=== PATIENT | female | born 1960 | race Caucasian/White ===

== ENCOUNTER 2018-06-22 22:46 | Inpatient (IN) | payer MEDICAID ==
[~2018-06-22] VITALS: Ht 154.9 cm; Wt 49.2 kg
[~2018-06-22 22:46] MED LIST: CITA10TA4 PO; CLON0.5T11 PO; ETOMIDATE 20 MG/10 ML ONE; LEVE10007 PO; LEVE500T53 PO; MIDAZOLAM 1 MG/ML, 5ML ONE; MIRT30TA6 PO; PHEN100C PO; PHEN100O3 PO; POTA10PI2 PO; PROPOFOL 10 MG/ML, 100ML IV ONE; RISP0.253 PO; SIMV20TA3 PO; SUCCINYLCHOLINE 20 MG/ML, 10ML ONE; VECURONIUM 10 MG ONE
[2018-06-22] MEDS ORDERED: LORazepam 2 MG/ML, 1ML ONE ×4 (22:53→23:05)
--- NOTE | 2018-06-22 23:11 | NUR ---
ASSUMED CARE OF PATIENT. PT BIB [facility] FOR CONTINUES SEIZURES. PT IS HAS A BASELINE OF A&O X1. USUALLY TO SELF. PT HAS A HISTORY OF DEMENTIA. HER FAMILY REPORTED HER MISSING TODAY. THEN FAMILY SAID SHE RETURNED HOME AND STARTED HAVING SEIZURES. PT HAS A HISTORY OF. PT TAKEN TO T3. DR ARTIS IN ROOM FOR INTUBATION. RT IN ROOM FOR INTUBATION.
[2018-06-22] MEDS ORDERED: FOSPHENYTOIN IV ONE (23:30)
[2018-06-22] MEDS ORDERED: LORazepam 2 MG/ML, 1ML IVPush ONE (23:30)
[2018-06-22] MEDS ORDERED: PROPOFOL 100 ML IV PRN (23:30)
[2018-06-22] MEDS ORDERED: MIDAZOLAM HCL 25 MG in SODIUM CHLORIDE 0.9% 245 ML IV PRN (23:30)
[2018-06-22] MEDS ORDERED: PHENYTOIN SODIUM 1,000 MG in SODIUM CHLORIDE 0.9% 250 ML IV ONE (23:45)
[2018-06-22] MEDS ORDERED: FILTER 0.22 MICRON IV ONE (23:45)
[2018-06-23] MEDS ORDERED: ONDANSETRON 2MG/ML, 2ML IVPush PRN
--- NOTE | 2018-06-23 00:05 | NUR ---
PT INTUBATED BY DR ARTIS WITH A 8.0 ET 23 AT THE LIP
[2018-06-23 00:07] LABS: BASOPHILS # (AUTO) 0.03 x10^3/uL (0-0.1); BASOPHILS % (AUTO) 0 % (0-1); EOSINOPHILS # (AUTO) 0.02 x10^3/uL (0-0.4); EOSINOPHILS % (AUTO) 0 % (1-7); LYMPHOCYTES # (AUTO) 1.13 x10^3/uL (1-3.4); LYMPHOCYTES % (AUTO) 9 % (22-44); MD NO; MEAN CORPUSCULAR HEMOGLOBIN 31.2 pg (27.0-34.8); MEAN CORPUSCULAR HGB CONC 34.2 g/dL (32.4-35.8); MEAN CORPUSCULAR VOLUME 91.3 fL (80-100); MEAN PLATELET VOLUME 9.2 fL (7.4-10.4); MONOCYTES # (AUTO) 0.27 x10^3/uL (0.2-0.8); MONOCYTES % (AUTO) 2 % (2-9); NEUTROPHILS # (AUTO) 10.73 x10^3/uL (1.8-6.8); NEUTROPHILS % (AUTO) 88 % (42-75); PLATELET COUNT 212 x10^3/uL (130-400); RED BLOOD COUNT 4.49 x10^6/uL (3.82-5.3); RED CELL DISTRIBUTION WIDTH 13.7 % (9.6-15.2)
--- NOTE | 2018-06-23 00:07 | NUR ---
PT SEEN BY DR RICHARDSON
--- NOTE | 2018-06-23 00:07 | NUR ---
XRAY IN ROOM
[2018-06-23 00:20] LABS: ALBUMIN 3.3 g/dL (3.4-5.0); ANION GAP 8 mmol/L (5-15); CALCIUM 7.9 mg/dL (8.5-10.1); CHLORIDE 108 mmol/L (98-107)
[2018-06-23 00:25] LABS: ALANINE AMINOTRANSFERASE 11 U/L (12-78); ALKALINE PHOSPHATASE 71 U/L (45-117); BILIRUBIN,TOTAL 0.5 mg/dL (0.2-1.0); CREATININE 0.63 mg/dL (0.55-1.02); TOTAL PROTEIN 6.2 g/dL (6.4-8.2); TROPONIN I 0.033 ng/mL (0.000-0.045)
[2018-06-23 00:26] LABS: AMPHETAMINE SCREEN, URINE Negative (Negative); BARBITURATE SCREEN, URINE Negative (Negative); BENZODIAZEPINE SCREEN, URINE Positive (Negative); CANNABINOID SCREEN, URINE Positive (Negative); COCAINE SCREEN, URINE Negative (Negative); METHADONE SCREEN, URINE Negative (Negative); OPIATE SCREEN, URINE Negative (Negative)
--- NOTE | 2018-06-23 00:29 | NUR ---
REPORT CALLED TO BENITO RODRIGUEZ IN ICU.
--- NOTE | 2018-06-23 00:34 | NUR ---
family member Liana [phone]
--- NOTE | 2018-06-23 00:39 | NUR ---
PT IN CT THEN TO ICU.
[2018-06-23] MEDS ORDERED: LEVETIRACETAM 1,000 MG in SODIUM CHLORIDE 0.9% 100 ML IV STA (00:45)
[2018-06-23] MEDS ORDERED: BISACODYL 10 MG SUPP PR PRN (01:00)
[2018-06-23] MEDS ORDERED: GLUCAGON 1 MG IM PRN (01:00)
[2018-06-23] MEDS ORDERED: ALBUTEROL/IPRATROPIUM 2.5MG/0.5MG, 3 ML INLINE SCH (01:00)
[2018-06-23] MEDS ORDERED: SENNOSIDES 8.8 MG/5 ML ORAL SOL NG PRN (01:00)
[2018-06-23] MEDS ORDERED: DEXTROSE 50%, 50ML SYRINGE IVPush PRN (01:00)
[2018-06-23] MEDS ORDERED: SENNA/DOCUSATE TABLET NG PRN (01:00)
[2018-06-23] MEDS ORDERED: PHARMACY MAY ADJ FOR RENAL FX MC SCH (01:00)
[2018-06-23] MEDS ORDERED: LIDOCAINE-MPF 1%, 2ML ENDO PRN (01:00)
[2018-06-23] MEDS ORDERED: DEXTROSE 4 GM TAB.CHEW PO PRN (01:00)
[2018-06-23] MEDS ORDERED: FENTANYL PF 100 MCG/2ML IVPush PRN (01:00)
[2018-06-23] MEDS ORDERED: LACTULOSE 20 GM/30 ML UDC NG PRN (01:00)
[2018-06-23] MEDS ORDERED: LORazepam 2 MG/ML, 1ML IVPush PRN ×2 (01:00)
[2018-06-23] MEDS ORDERED: VANCOMYCIN PMX 1GM/200ML 200 ML IV ONE (01:30)
[2018-06-23] MEDS ORDERED: ACETAMINOPHEN 325 MG TABLET PO PRN (01:30)
[2018-06-23] MEDS ORDERED: VANCOMYCIN IV SCH (01:30)
[2018-06-23] MEDS ORDERED: SODIUM CHLORIDE 0.9% IV SCH (01:30)
[2018-06-23] MEDS ORDERED: CEFTRIAXONE PMX 2GM/50ML 50 ML IV SCH (01:30)
[2018-06-23] MEDS: SODIUM CHLORIDE 0.9% 1,000 ML IV SCH ×3 (01:37→14:20)
[2018-06-23] MEDS: FAMOTIDINE 20 MG/2 ML IVPush SCH ×3 (01:37→20:13)
[2018-06-23] MEDS ORDERED: DEXAMETHASONE 4 MG/ML, 5ML IVPush STA (01:38)
[2018-06-23 01:51] LABS: CREATINE KINASE, TOTAL 153 U/L (26-192); TROPONIN I 0.043 ng/mL (0.000-0.045)
[2018-06-23] MEDS ORDERED: VANCOMYCIN PER PHARMACY MC PRN (02:00)
[2018-06-23] MEDS ORDERED: PHARMACOKINETIC MONITORING MC PRN (02:00)
[2018-06-23] MEDS ORDERED: DEXAMETHASONE 4 MG/ML, 1ML ONE (02:10)
[2018-06-23] MEDS ORDERED: VANCOMYCIN 1,250 MG in SODIUM CHLORIDE 0.9% 250 ML IV ONE (03:00)
[2018-06-23 04:00] VITALS: BP 101/68
[2018-06-23 04:52] LABS: CHLORIDE 107 mmol/L (98-107)
[2018-06-23 04:59] LABS: ALANINE AMINOTRANSFERASE 9 U/L (12-78); ALBUMIN 3.2 g/dL (3.4-5.0); ALKALINE PHOSPHATASE 71 U/L (45-117); ANION GAP 8 mmol/L (5-15); BILIRUBIN,TOTAL 0.4 mg/dL (0.2-1.0); CREATININE 0.78 mg/dL (0.55-1.02); TOTAL PROTEIN 6.5 g/dL (6.4-8.2)
[2018-06-23] MEDS: PROPOFOL 100 ML IV PRN ×2 (05:03→13:42)
[2018-06-23] MEDS ORDERED: LORazepam 2 MG/ML, 1ML IM STA (05:26)
[2018-06-23] MEDS ORDERED: MIDAZOLAM 1 MG/ML, 2ML IVPush ONE (05:30)
[2018-06-23 06:03] LABS: BASOPHILS # (AUTO) 0.01 x10^3/uL (0-0.1); BASOPHILS % (AUTO) 0 % (0-1); EOSINOPHILS # (AUTO) 0.01 x10^3/uL (0-0.4); EOSINOPHILS % (AUTO) 0 % (1-7); LYMPHOCYTES # (AUTO) 1.13 x10^3/uL (1-3.4); LYMPHOCYTES % (AUTO) 12 % (22-44); MD NO; MEAN CORPUSCULAR HEMOGLOBIN 31.2 pg (27.0-34.8); MEAN CORPUSCULAR HGB CONC 34.3 g/dL (32.4-35.8); MEAN CORPUSCULAR VOLUME 91.2 fL (80-100); MEAN PLATELET VOLUME 9.2 fL (7.4-10.4); MONOCYTES # (AUTO) 0.28 x10^3/uL (0.2-0.8); MONOCYTES % (AUTO) 3 % (2-9); NEUTROPHILS % (AUTO) 85 % (42-75); PLATELET COUNT 192 x10^3/uL (130-400); RED BLOOD COUNT 4.83 x10^6/uL (3.82-5.3); RED CELL DISTRIBUTION WIDTH 13.9 % (9.6-15.2)
--- NOTE | 2018-06-23 06:10 | NUR ---
LATE ENTRY: 2 MG OF ATIVAN GIVEN IM. VERBAL ORDER FROM DR ARTIS IN THE TRAUMA ROOM. MEDICATION GIVEN AT 06/22/18 AT 2355. LEFT DELTOID.
[2018-06-23] MEDS: INSULIN REGULAR 100 UNITS/ML, 3ML VIAL SQ-INSULIN SCH ×2 (07:00→11:00)
[2018-06-23] MEDS ORDERED: PHENYTOIN SODIUM 50 MG/ML, 2ML IVPush SCH (08:00)
[2018-06-23 08:38] LABS: CREATINE KINASE, TOTAL 266 U/L (26-192); TROPONIN I 0.067 ng/mL (0.000-0.045)
[2018-06-23] MEDS: SODIUM CHLORIDE FLUSH 10ML SYR IVF SCH ×2 (09:17→20:14)
[2018-06-23] MEDS: ENOXAPARIN 40 MG/0.4 ML SQ SCH (11:05)
[2018-06-23] MEDS: LEVETIRACETAM 500 MG in SODIUM CHLORIDE 0.9% 100 ML IV SCH (12:48)
[2018-06-23] MEDS ORDERED: SODIUM CHLORIDE 0.9% 1,000ML IVBOLUS ONE (14:00)
[2018-06-23] MEDS ORDERED: SODIUM CHLORIDE 0.9%, 500ML IVBOLUS ONE ×2 (14:00→15:45)
[2018-06-23] MEDS ORDERED: VANCOMYCIN PMX 1GM/200ML 200 ML IV SCH (15:00)
[2018-06-24] MEDS: LEVETIRACETAM 500 MG in SODIUM CHLORIDE 0.9% 100 ML IV SCH ×2 (01:28→12:45)
[2018-06-24] MEDS: SODIUM CHLORIDE 0.9% 1,000 ML IV SCH ×3 (01:28→18:09)
[2018-06-24 03:10] VITALS: BP 136/97
[2018-06-24] MEDS ORDERED: SODIUM CHLORIDE 0.9% 1,000ML IVBOLUS ONE (04:00)
[2018-06-24 04:44] LABS: BASOPHILS # (AUTO) 0.03 x10^3/uL (0-0.1); BASOPHILS % (AUTO) 0 % (0-1); EOSINOPHILS % (AUTO) 0 % (1-7); LYMPHOCYTES # (AUTO) 2.97 x10^3/uL (1-3.4); LYMPHOCYTES % (AUTO) 25 % (22-44); MD NO; MEAN CORPUSCULAR HEMOGLOBIN 30.6 pg (27.0-34.8); MEAN CORPUSCULAR VOLUME 92.7 fL (80-100); MEAN PLATELET VOLUME 9.8 fL (7.4-10.4); MONOCYTES # (AUTO) 0.97 x10^3/uL (0.2-0.8); MONOCYTES % (AUTO) 8 % (2-9); NEUTROPHILS # (AUTO) 8.04 x10^3/uL (1.8-6.8); NEUTROPHILS % (AUTO) 67 % (42-75); PLATELET COUNT 161 x10^3/uL (130-400); RED BLOOD COUNT 4.14 x10^6/uL (3.82-5.3); RED CELL DISTRIBUTION WIDTH 14.2 % (9.6-15.2)
[2018-06-24 04:50] LABS: ANION GAP 7 mmol/L (5-15); CALCIUM 7.1 mg/dL (8.5-10.1); CHLORIDE 118 mmol/L (98-107)
[2018-06-24 04:51] LABS: CREATINE KINASE, TOTAL 477 U/L (26-192)
[2018-06-24] MEDS: PROPOFOL 100 ML IV PRN (05:54)
[2018-06-24] MEDS: FAMOTIDINE 20 MG/2 ML IVPush SCH ×2 (08:03→20:26)
[2018-06-24] MEDS: SODIUM CHLORIDE FLUSH 10ML SYR IVF SCH ×2 (08:04→20:26)
[2018-06-24] MEDS: ENOXAPARIN 40 MG/0.4 ML SQ SCH (10:00)
[2018-06-24] MEDS: NICOTINE 14MG/24 HR PATCH.TD24 TD SCH (21:44)
[2018-06-24] MEDS ORDERED: LORazepam 2 MG/ML, 1ML IVPush PRN (22:00)
[2018-06-24] MEDS ORDERED: HALOPERIDOL 5 MG/ML IV PRN (22:00)
[2018-06-25] MEDS: LEVETIRACETAM 500 MG in SODIUM CHLORIDE 0.9% 100 ML IV SCH ×3 (01:00→23:51)
[2018-06-25 04:00] VITALS: BP 94/53
[2018-06-25 04:30] LABS: ANION GAP 7 mmol/L (5-15); CALCIUM 7.7 mg/dL (8.5-10.1); CHLORIDE 111 mmol/L (98-107); CREATININE 0.39 mg/dL (0.55-1.02)
[2018-06-25 05:25] LABS: BASOPHILS # (AUTO) 0.04 x10^3/uL (0-0.1); BASOPHILS % (AUTO) 1 % (0-1); EOSINOPHILS # (AUTO) 0.06 x10^3/uL (0-0.4); EOSINOPHILS % (AUTO) 1 % (1-7); LYMPHOCYTES # (AUTO) 1.92 x10^3/uL (1-3.4); LYMPHOCYTES % (AUTO) 26 % (22-44); MD NO; MEAN CORPUSCULAR HEMOGLOBIN 30.1 pg (27.0-34.8); MEAN CORPUSCULAR HGB CONC 32.6 g/dL (32.4-35.8); MEAN CORPUSCULAR VOLUME 92.2 fL (80-100); MEAN PLATELET VOLUME 9.3 fL (7.4-10.4); MONOCYTES # (AUTO) 0.53 x10^3/uL (0.2-0.8); MONOCYTES % (AUTO) 7 % (2-9); NEUTROPHILS # (AUTO) 4.83 x10^3/uL (1.8-6.8); NEUTROPHILS % (AUTO) 66 % (42-75); PLATELET COUNT 157 x10^3/uL (130-400); RED CELL DISTRIBUTION WIDTH 14.2 % (9.6-15.2)
[2018-06-25] MEDS ORDERED: SODIUM CHLORIDE 0.9%, 250ML IVBOLUS ONE ×2 (08:30→16:30)
[2018-06-25] MEDS ORDERED: CEFTRIAXONE PMX 1GM/50ML 50 ML IV SCH (09:00)
[2018-06-25] MEDS: FAMOTIDINE 20 MG/2 ML IVPush SCH (09:25)
[2018-06-25] MEDS: SODIUM CHLORIDE FLUSH 10ML SYR IVF SCH ×2 (09:26→20:32)
[2018-06-25] MEDS: SODIUM CHLORIDE 0.9% 1,000 ML IV SCH ×3 (10:07→23:51)
[2018-06-25] MEDS: ENOXAPARIN 40 MG/0.4 ML SQ SCH (10:09)
--- NOTE | 2018-06-25 11:24 | NUR ---
PERFECT BINDER OPERATOR recommend: -PUREE/ THINS -Straws ok -Assist as needed -Meds as tolerated orange sheet posted Addendum: 06/25/18 at [address] Amended: Links added.
[2018-06-25] MEDS: PIPERACILLIN/TAZO/PMX 3.375GM 50 ML IV SCH ×2 (15:24→20:32)
[2018-06-25] MEDS: HYDROCORTISONE 100 MG INJ. IVPush SCH (19:18)
[2018-06-25] MEDS: NICOTINE 14MG/24 HR PATCH.TD24 TD SCH (20:33)
[2018-06-25] MEDS ORDERED: SODIUM CHLORIDE 0.9% 1,000 ML IV SCH ×3 (21:40→22:00)
[2018-06-26] MEDS: HYDROCORTISONE 100 MG INJ. IVPush SCH ×3 (01:15→20:50)
[2018-06-26] MEDS: PIPERACILLIN/TAZO/PMX 3.375GM 50 ML IV SCH ×4 (02:42→20:50)
[2018-06-26 04:00] VITALS: BP 123/69
[2018-06-26] MEDS: SODIUM CHLORIDE 0.9% 1,000 ML IV SCH ×2 (07:09→20:50)
[2018-06-26 07:52] LABS: BASOPHILS % (AUTO) 0 % (0-1); EOSINOPHILS % (AUTO) 0 % (1-7); LYMPHOCYTES # (AUTO) 0.83 x10^3/uL (1-3.4); LYMPHOCYTES % (AUTO) 13 % (22-44); MD NO; MEAN CORPUSCULAR HEMOGLOBIN 30.7 pg (27.0-34.8); MEAN CORPUSCULAR HGB CONC 33.4 g/dL (32.4-35.8); MEAN CORPUSCULAR VOLUME 91.9 fL (80-100); MEAN PLATELET VOLUME 9.5 fL (7.4-10.4); MONOCYTES # (AUTO) 0.26 x10^3/uL (0.2-0.8); MONOCYTES % (AUTO) 4 % (2-9); NEUTROPHILS % (AUTO) 83 % (42-75); PLATELET COUNT 170 x10^3/uL (130-400); RED BLOOD COUNT 3.66 x10^6/uL (3.82-5.3)
[2018-06-26 08:00] LABS: ALBUMIN 2.6 g/dL (3.4-5.0); ANION GAP 7 mmol/L (5-15); CALCIUM 7.8 mg/dL (8.5-10.1); CHLORIDE 111 mmol/L (98-107)
[2018-06-26 08:04] LABS: ALANINE AMINOTRANSFERASE 13 U/L (12-78); ALKALINE PHOSPHATASE 57 U/L (45-117); BILIRUBIN,TOTAL 0.3 mg/dL (0.2-1.0); CREATININE 0.34 mg/dL (0.55-1.02); TOTAL PROTEIN 5.1 g/dL (6.4-8.2)
[2018-06-26] MEDS: SODIUM CHLORIDE FLUSH 10ML SYR IVF SCH ×2 (08:04→20:50)
[2018-06-26] MEDS ORDERED: POTASSIUM CHLORIDE 20 MEQ TAB.ER.PRT ONE (08:49)
[2018-06-26] MEDS: POTASSIUM CHLORIDE 20 MEQ TAB.ER.PRT PO SCH (08:51)
[2018-06-26] MEDS: ENOXAPARIN 40 MG/0.4 ML SQ SCH (11:06)
[2018-06-26] MEDS: LEVETIRACETAM 500 MG in SODIUM CHLORIDE 0.9% 100 ML IV SCH (12:26)
[2018-06-26 20:15] VITALS: BP 117/78
[2018-06-26] MEDS: NICOTINE 14MG/24 HR PATCH.TD24 TD SCH (21:00)
[2018-06-26] MEDS ORDERED: SODIUM CHLORIDE 0.9% 1,000 ML IV SCH (22:00)
[2018-06-27] MEDS: LEVETIRACETAM 500 MG in SODIUM CHLORIDE 0.9% 100 ML IV SCH (00:46)
[2018-06-27 01:55] VITALS: BP 115/77
[2018-06-27] MEDS: PIPERACILLIN/TAZO/PMX 3.375GM 50 ML IV SCH ×2 (03:15→08:27)
[2018-06-27 05:27] LABS: ANION GAP 6 mmol/L (5-15); CHLORIDE 111 mmol/L (98-107); CREATININE 0.46 mg/dL (0.55-1.02)
[2018-06-27 07:25] VITALS: BP 109/71
[2018-06-27] MEDS: HYDROCORTISONE 100 MG INJ. IVPush SCH (08:27)
[2018-06-27] MEDS: SODIUM CHLORIDE FLUSH 10ML SYR IVF SCH (08:28)
[2018-06-27] MEDS: POTASSIUM CHLORIDE 20 MEQ TAB.ER.PRT PO SCH (08:28)
[2018-06-27] MEDS ORDERED: HEPARIN 5,000 UNITS/ML, 1ML SQ SCH (09:30)
[2018-06-27] MEDS ORDERED: NICO-486 TD (10:58)
[2018-06-27] MEDS ORDERED: ACETAMINOPHEN 325 MG TABLET PO PRN (13:30)
[2018-06-27 14:52] VITALS: BP 99/63
[2018-06-27] MEDS ORDERED: LEVETIRACETAM 500 MG TABLET PO SCH (21:00)
[2018-06-27] MEDS ORDERED: SODIUM CHLORIDE 0.9% 1,000 ML IV SCH (22:00)
== END 2018-06-27 19:00 | disposition home or self-care (01) | DRG 871 ==
LOC: ED 23:38 → SUATTDRO 23:43 → EDIP 23:43 → ED 06-23 → CCU 06-23 00:47 → 4EST 06-26 17:35
PROVIDERS: ADMIT Hospitalist; ATTEND Hospitalist
PROC: 5A1945Z Respiratory Ventilation, 24-96 Consecutive Hours (ICD-10-PCS; principal; 2018-06-22)
PROC: 0BH18EZ Insertion of Endotracheal Airway into Trachea, Via Natural or Artificial Opening Endoscopic (ICD-10-PCS; 2018-06-22)
DX: A41.9 Sepsis, unspecified organism (principal); J15.1 Pneumonia due to Pseudomonas; J96.00 Acute respiratory failure, unspecified whether with hypoxia or hypercapnia; Z99.11 Dependence on respirator [ventilator] status; J44.0 Chronic obstructive pulmonary disease with (acute) lower respiratory infection; Q07.02 Arnold-Chiari syndrome with hydrocephalus; G93.40 Encephalopathy, unspecified; E87.2 Acidosis; E46 Unspecified protein-calorie malnutrition; E27.40 Unspecified adrenocortical insufficiency; E87.1 Hypo-osmolality and hyponatremia; G83.84 Todd's paralysis (postepileptic); G30.9 Alzheimer's disease, unspecified; G40.901 Epilepsy, unspecified, not intractable, with status epilepticus; F32.9 Major depressive disorder, single episode, unspecified; E83.51 Hypocalcemia; E78.5 Hyperlipidemia, unspecified; F02.80 Dementia in other diseases classified elsewhere, unspecified severity, without behavioral disturbance, psychotic disturbance, mood disturbance, and anxiety; Z98.2 Presence of cerebrospinal fluid drainage device; Z79.899 Other long term (current) drug therapy; Z87.891 Personal history of nicotine dependence; Z59.0 Homelessness; Z88.8 Allergy status to other drugs, medicaments and biological substances; Z68.20 Body mass index [BMI] 20.0-20.9, adult
CPT/HCPCS: 36415; 36600; 80177; J3490; 31500; 51702; 70450; 71045; 80048; 80053; 80185; 80307; 82330; 82533; 82550; 82803; 82962; 83605; 83735; 84100; 84484; 85025; 87070; 87077; 87081; 87186; 87205; 93005; 94002; 94003; 94150; 95812; 95819; 96365; 96366; G0378; J0696; J1100; J1165; J1644; J1650; J1953; J2250; J2543; J2704; J3370; J0330; J1630; J1720; J2060; J7030; J7040; J7050

== ENCOUNTER 2018-12-03 08:41 | Emergency (ER) | payer MEDICAID ==
[~2018-12-03] VITALS: Ht 165.1 cm; Wt 55.0 kg
[2018-12-03 14:26] VITALS: BP 134/80
== END 2018-12-03 14:43 | disposition home or self-care (01) ==
LOC: ED 09:52
DX: G40.319 Generalized idiopathic epilepsy and epileptic syndromes, intractable, without status epilepticus (principal); I95.9 Hypotension, unspecified; R51 Headache
CPT/HCPCS: 36415; 70450; 71045; 80048; 82040; 84484; 85025; 93005; 99284

== ENCOUNTER 2019-03-17 07:34 | Emergency (ER) | payer MEDICAID ==
[~2019-03-17] VITALS: Ht 165.1 cm; Wt 45.0 kg
[~2019-03-17 07:34] MED LIST changes: -ETOMIDATE 20 MG/10 ML ONE; -MIDAZOLAM 1 MG/ML, 5ML ONE; -MIRT30TA6 PO; +MIRT30TA97 PO; +NICO-486 TD; -PROPOFOL 10 MG/ML, 100ML IV ONE; -SUCCINYLCHOLINE 20 MG/ML, 10ML ONE; -VECURONIUM 10 MG ONE
[2019-03-17 07:36] VITALS: BP 106/75
--- NOTE | 2019-03-17 07:59 | NUR ---
atul davies daughter called [phone] states call if we need any info
[2019-03-17] MEDS ORDERED: ACETAMINOPHEN 325 MG TABLET ONE (08:05)
--- NOTE | 2019-03-17 08:15 | NUR ---
PT BIB BY AKIL FOR C/O OF AN AURA. 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 DENIES ANY SEIZURE ACTIVITY THIS MORNING, NO OTHER C/O BESIDES A 5/10 HEADACHE. LAB AT BEDSIDE FOR DRAW. PT PROVIDED WITH WATER AND MEDICATED PER MAR. DENIES ANY FURTHER NEEDS OR CONCERNS AT THIS TIME.
[2019-03-17] MEDS ORDERED: ACETAMINOPHEN 325 MG TABLET PO ONE (08:30)
[2019-03-17 08:40] LABS: BASOPHILS # (AUTO) 0.04 x10^3/uL (0-0.1); BASOPHILS % (AUTO) 1 % (0-1); EOSINOPHILS # (AUTO) 0.03 x10^3/uL (0-0.4); EOSINOPHILS % (AUTO) 1 % (1-7); LYMPHOCYTES # (AUTO) 1.98 x10^3/uL (1-3.4); LYMPHOCYTES % (AUTO) 32 % (22-44); MD NO; MEAN CORPUSCULAR HEMOGLOBIN 31.6 pg (27.0-34.8); MEAN CORPUSCULAR HGB CONC 33.5 g/dL (32.4-35.8); MEAN CORPUSCULAR VOLUME 94.3 fL (80-100); MEAN PLATELET VOLUME 8.5 fL (7.4-10.4); MONOCYTES % (AUTO) 5 % (2-9); NEUTROPHILS # (AUTO) 3.94 x10^3/uL (1.8-6.8); NEUTROPHILS % (AUTO) 63 % (42-75); PLATELET COUNT 211 x10^3/uL (130-400); RED BLOOD COUNT 5.15 x10^6/uL (3.82-5.3); RED CELL DISTRIBUTION WIDTH 13.4 % (9.6-15.2)
[2019-03-17 08:51] LABS: ALBUMIN 3.7 g/dL (3.4-5.0); ANION GAP 10 mmol/L (5-15); CALCIUM 8.5 mg/dL (8.5-10.1); CHLORIDE 104 mmol/L (98-107); CREATININE 0.77 mg/dL (0.55-1.02)
[2019-03-17] MEDS ORDERED: POTASSIUM CHLORIDE 20 MEQ TAB.ER.PRT PO ONE (09:00)
[2019-03-17] MEDS ORDERED: POTASSIUM CHLORIDE 20 MEQ TAB.ER.PRT ONE (09:06)
--- NOTE | 2019-03-17 09:10 | NUR ---
AMBULATED TO [facility]. REPORT FROM MINESH
--- NOTE | 2019-03-17 09:25 | NUR ---
CALLED DAUGHTER FOR DC INFO. WILL WRITE PT VOUCHER FOR CAB.
--- NOTE | 2019-03-17 09:36 | NUR ---
Patient/Caregiver given discharge instructions and they have confirmed that they understand the instructions. Patient ambulatory with steady gait.
[2019-03-17] MEDS ORDERED: LEVE500V6 PO (12:30)
== END 2019-03-17 09:37 | disposition home or self-care (01) ==
LOC: ED 08:00
DX: G40.909 Epilepsy, unspecified, not intractable, without status epilepticus (principal); E87.6 Hypokalemia; I95.9 Hypotension, unspecified
CPT/HCPCS: 36415; 80048; 82040; 85025; 99283

== ENCOUNTER 2019-03-17 12:16 | Emergency (ER) | payer MEDICAID ==
[2019-03-17] MEDS ORDERED: LEVE500V6 PO (12:30)
--- NOTE | 2019-03-17 12:30 | NUR ---
PAITENT IN BED. HOOKED UP TO SENIOR TALENT MANAGEMENT CONSULTANT. CHEST IS RISING AND FALLING. EYES CLOSED. CALL LIGHT WITHIN REACH
[2019-03-17] MEDS ORDERED: LEVETIRACETAM 500 MG in SODIUM CHLORIDE 0.9% 100 ML IV ONE (13:30)
--- NOTE | 2019-03-17 13:32 | NUR ---
PAITENT UP TO USE RESTROOM. STANDBY ASSIST. PAITENT IS BACK IN BED. CALL LIGHT WITHIN REACH
--- NOTE | 2019-03-17 13:51 | NUR ---
DEEPIKAT IN BED. RESTING. CALL LIGHT WITHIN REACH
[2019-03-17 14:42] VITALS: BP 106/74
--- NOTE | 2019-03-17 14:43 | NUR ---
PAITENT IN BED. UNDER BLANKETS. AWAKE. ORIENTATED. AWAITING DOCTOR DISPO
--- NOTE | 2019-03-17 14:54 | NUR ---
marilynn daughter [phone] vijay OLIVER call
--- NOTE | 2019-03-17 16:05 | NUR ---
SPOKE TO DAUGHTER CK. DAUGHTER GAVE ME THE ADRESS TO SEND THE PAITENT TOO
== END 2019-03-17 16:00 | disposition home or self-care (01) ==
LOC: ED 15:54
DX: G40.319 Generalized idiopathic epilepsy and epileptic syndromes, intractable, without status epilepticus (principal); F17.200 Nicotine dependence, unspecified, uncomplicated
CPT/HCPCS: 93005; 96365; 99283; J1953

== ENCOUNTER 2019-03-18 10:15 | Emergency (ER) | payer MEDICAID ==
[~2019-03-18] VITALS: Ht 165.1 cm; Wt 50.0 kg
[~2019-03-18 10:15] MED LIST changes: +LEVE500V6 PO
[2019-03-18 10:21] VITALS: BP 111/78
--- NOTE | 2019-03-18 11:06 | NUR ---
GOT REPORT FROM AKIL. SHANNEN WAS FOUND WONDERING OUTSIDE APARTMENT. WAS NOT ABLE TO GET BACK INSIDE HER APARTMENT. COULDNT GET A HOLD OF DAUGHTER. CONFUSED. IS NOW RESTING IN BED WATCHING TV.
--- NOTE | 2019-03-18 11:13 | NUR ---
SHANNEN STATED HER NECK WAS "TENDER". APPLIED CERVICAL COLLAR AND LAID THE BED FLAT. CALL LIGHT WITHIN REACH
--- NOTE | 2019-03-18 12:11 | NUR ---
PRECEPTOR NOTE: MESSAGE LEFT FOR SW CONSULT.
[2019-03-18 12:58] LABS: ALANINE AMINOTRANSFERASE 14 U/L (12-78); ALBUMIN 4.1 g/dL (3.4-5.0); ANION GAP 8 mmol/L (5-15); CALCIUM 9.3 mg/dL (8.5-10.1); CHLORIDE 106 mmol/L (98-107); CREATININE 0.71 mg/dL (0.55-1.02)
[2019-03-18 13:00] LABS: BASOPHILS # (AUTO) 0.04 x10^3/uL (0-0.1); BASOPHILS % (AUTO) 0 % (0-1); EOSINOPHILS # (AUTO) 0.01 x10^3/uL (0-0.4); EOSINOPHILS % (AUTO) 0 % (1-7); LYMPHOCYTES # (AUTO) 2.37 x10^3/uL (1-3.4); LYMPHOCYTES % (AUTO) 28 % (22-44); MD NO; MEAN CORPUSCULAR HEMOGLOBIN 31.2 pg (27.0-34.8); MEAN CORPUSCULAR HGB CONC 33.5 g/dL (32.4-35.8); MEAN CORPUSCULAR VOLUME 93.3 fL (80-100); MEAN PLATELET VOLUME 8.8 fL (7.4-10.4); MONOCYTES # (AUTO) 0.46 x10^3/uL (0.2-0.8); MONOCYTES % (AUTO) 6 % (2-9); NEUTROPHILS # (AUTO) 5.49 x10^3/uL (1.8-6.8); NEUTROPHILS % (AUTO) 66 % (42-75); PLATELET COUNT 251 x10^3/uL (130-400); RED BLOOD COUNT 5.18 x10^6/uL (3.82-5.3); RED CELL DISTRIBUTION WIDTH 13.7 % (9.6-15.2)
[2019-03-18 13:01] LABS: ALKALINE PHOSPHATASE 88 U/L (45-117); BILIRUBIN,TOTAL 0.7 mg/dL (0.2-1.0); TOTAL PROTEIN 7.9 g/dL (6.4-8.2)
[2019-03-18 13:02] LABS: CULTURE INDICATED? NO; MICROSCOPIC NOT IND
--- NOTE | 2019-03-18 13:38 | NUR ---
PAITENT WILL BE DISCHARGED HOME. DAUGHTER WILL ACCEPT CARE. PER MEGHNA THE CHIEF WARDEN
== END 2019-03-18 14:01 | disposition home or self-care (01) ==
LOC: ED 13:38
DX: S01.81XA Laceration without foreign body of other part of head, initial encounter (principal); G40.909 Epilepsy, unspecified, not intractable, without status epilepticus; I95.9 Hypotension, unspecified; W18.30XA Fall on same level, unspecified, initial encounter; Y93.89 Activity, other specified; Y92.89 Other specified places as the place of occurrence of the external cause; Y99.8 Other external cause status
CPT/HCPCS: 36415; 70450; 72125; 80053; 80177; 81003; 85025; 99284

== ENCOUNTER 2019-04-22 06:59 | Emergency (ER) | payer MEDICAID ==
[~2019-04-22] VITALS: Ht 165.1 cm; Wt 43.3 kg
[2019-04-22 07:01] VITALS: BP 127/88
--- NOTE | 2019-04-22 08:07 | NUR ---
PT TO ROOM 2. PT PLACED IN GOWN, BELONGINGS IN LOCKER, GARAGE DOORS DOWN AND SITTER AT DOORWAY. URINE COLLECTED/SENT TO LAB. PT UPDATED ON POC. PT STATES SHE IS FROM [place], LEFT BOYFRIEND AND MOVED IN WITH DAUGHTER RECENTLY. PT STATES "ME AND MY DAUGHTER ARE NOT ON SPEAKING TERMS". PT SAYS SHE LEFT HOUSE ROAD CROSSING GUARD B/C SHE CAN'T STAY WITH DAUGHTER ANYMORE. PT ADAMANT THAT DTR NOT BE NOTIFIED WHERE SHE IS OR OF HER STATUS. PT DENIES SI, HI, AH, VH AND ANY HX OF SUCH. PT WITH HX OF ETOH ABUSE (QUIT 2013), MARIJAUNA USE, EPILEPSY, AND HYDROCEPHALUS .
[2019-04-22 08:22] LABS: CULTURE INDICATED? YES; MICROSCOPIC INDICATED
[2019-04-22 08:30] LABS: AMPHETAMINE SCREEN, URINE Negative (Negative); BARBITURATE SCREEN, URINE Negative (Negative); BENZODIAZEPINE SCREEN, URINE Negative (Negative); CANNABINOID SCREEN, URINE Positive (Negative); COCAINE SCREEN, URINE Negative (Negative); METHADONE SCREEN, URINE Negative (Negative); OPIATE SCREEN, URINE Negative (Negative)
--- NOTE | 2019-04-22 08:33 | NUR ---
PT WANTS BROTHER CALLED BUT CANNOT PROVIDE PHONE NUMBER. ATTEMPT TO FIND BROTHER'S NUMBER UNSUCCESSFUL. CALL PLACED TO NUMBER LISTED FOR SON-WRONG NUMBER. ERP NOTIFIED. PER ERP, CALL TO DTR NEEDS TO BE MADE. ERP AWARE THAT PT DOES NOT WANT HER CALLED BUT STATES PT HAS DEMENTIA AND NEXT OF KIN NEEDS TO BE CALLED.
--- NOTE | 2019-04-22 08:39 | NUR ---
NUMBER LISTED FOR DTR IS SAME. 2ND CALL PLACED, PERSON AT THAT NUMBER STATES NO RELATION TO ANY FAMILY WITH LAST NAME ANA. ERP NOTIFIED. MEAL TRAY PROVIDED TO PT.
[2019-04-22 08:40] LABS: ALANINE AMINOTRANSFERASE 16 U/L (12-78); ALBUMIN 3.5 g/dL (3.4-5.0); ANION GAP 4 mmol/L (5-15); CHLORIDE 108 mmol/L (98-107); CREATININE 0.66 mg/dL (0.55-1.02); SALICYLATE LEVEL 1.9 mg/dL (2.8-20.0)
[2019-04-22 08:42] LABS: ALKALINE PHOSPHATASE 79 U/L (45-117); BILIRUBIN,TOTAL 0.4 mg/dL (0.2-1.0); TOTAL PROTEIN 6.8 g/dL (6.4-8.2)
--- NOTE | 2019-04-22 08:57 | NUR ---
CALL TO SW OFFICE, LEFT VM REQUESTNG PT TO BE SEEN NACHO. CALL IN FROM DTR. PER DTR, RELATIONSHIP WITH PT (MOM) HAS BEEN GOOD. DTR STATES SHE THINKS PT LEFT HOUSE, CLIMBING OUT WINDOW, AT AROUND 0430-DOES NOT KNOW WHY BUT STATES SHE GETS CONFUSED OFTEN. DTR WILL LEAVE WORK AND COME TO ED SOON. ERP NOTIFIED. CK [phone]
[2019-04-22] MEDS ORDERED: PHEN100C PO (09:08)
--- NOTE | 2019-04-22 09:18 | NUR ---
PER ERP, NO LEGAL HOLD AND NO NEED FOR SITTER.
[2019-04-22 09:24] LABS: BASOPHILS # (AUTO) 0.01 x10^3/uL (0-0.1); BASOPHILS % (AUTO) 0 % (0-1); EOSINOPHILS # (AUTO) 0.04 x10^3/uL (0-0.4); EOSINOPHILS % (AUTO) 1 % (1-7); LYMPHOCYTES # (AUTO) 2.04 x10^3/uL (1-3.4); LYMPHOCYTES % (AUTO) 24 % (22-44); MD NO; MEAN CORPUSCULAR HEMOGLOBIN 30.8 pg (27.0-34.8); MEAN CORPUSCULAR HGB CONC 32.9 g/dL (32.4-35.8); MEAN CORPUSCULAR VOLUME 93.7 fL (80-100); MEAN PLATELET VOLUME 8.4 fL (7.4-10.4); MONOCYTES # (AUTO) 0.14 x10^3/uL (0.2-0.8); MONOCYTES % (AUTO) 2 % (2-9); NEUTROPHILS % (AUTO) 74 % (42-75); PLATELET COUNT 247 x10^3/uL (130-400); RED BLOOD COUNT 4.97 x10^6/uL (3.82-5.3); RED CELL DISTRIBUTION WIDTH 13.8 % (9.6-15.2)
--- NOTE | 2019-04-22 10:23 | NUR ---
CALL FROM DTR, LEAVING WORK NOW AND SHOULD ARRIVE TO ED SOON.
--- NOTE | 2019-04-22 10:57 | NUR ---
DTR HERE, ALL QUESTIONS ANSWERED. PT AWARE AND DOES NOT OBJECT. PT DISCHARGED HOME WITH DAUGHTER.
== END 2019-04-22 11:16 | disposition home or self-care (01) ==
LOC: ED 10:50
DX: F03.90 Unspecified dementia, unspecified severity, without behavioral disturbance, psychotic disturbance, mood disturbance, and anxiety (principal); G40.909 Epilepsy, unspecified, not intractable, without status epilepticus
CPT/HCPCS: 36415; 80053; 80307; 81001; 85025; 87086; 99283

== ENCOUNTER 2019-04-28 12:46 | Emergency (ER) | payer MEDICAID ==
[~2019-04-28] VITALS: Ht 165.1 cm; Wt 55.0 kg
[2019-04-28 12:52] VITALS: BP 119/78
--- NOTE | 2019-04-28 12:56 | NUR ---
PT BIB EMS FOR POSSIBLE SEIZURE PT HAD AT HOME. PT WAS WALKING ON STREET AND USED A PHONE TO CALL EMS. PT ALERT. NOT IN ANY DISTRESS. VS STABLE .
--- NOTE | 2019-04-28 13:35 | NUR ---
LOBSTER CATCHER AT BEDSIDE. DAUGHTER WILL PRICING CLERK PT
--- NOTE | 2019-04-28 14:20 | NUR ---
Patient/Caregiver given discharge instructions and they have confirmed that they understand the instructions. Patient ambulatory with steady gait.
== END 2019-04-28 14:22 | disposition home or self-care (01) ==
LOC: ED 14:16
DX: G40.309 Generalized idiopathic epilepsy and epileptic syndromes, not intractable, without status epilepticus (principal); F17.200 Nicotine dependence, unspecified, uncomplicated
CPT/HCPCS: 99283

== ENCOUNTER 2019-05-19 15:04 | Emergency (ER) | payer MEDICAID ==
[~2019-05-19] VITALS: Ht 165.1 cm; Wt 50.0 kg
--- NOTE | 2019-05-19 15:10 | NUR ---
PT BIB [facility] FROM HOME FOR C/O POSSIBLE SEIZURE. PER EMS, NEIGHBOR "HEARD SOMETHING" AT THE HOUSE AND CALLED [employer]. PT HAS HX OF SEIZURES. PT HAS NO RECOLLECTION OF HAVING SEIZURE OR ANY INCIDENT TODAY. STATES SHE LAST REMEMBERS LYING IN BED. STATES SHE SOMETIMES HAS A HEADACHE AFTER A SEIZURE BUT DOESN'T HAVE A HEADACHE NOW. NO ORAL TRAUMA OR OTHER SIGNS OF SEIZURE. ARRIVES TO ED A&OX4. VSS. PT STATES SHE LIVES WITH HER DAUGHTER BUT DOESN'T HAVE HER DAUGHTER'S PHONE NUMBER. POC RV'WD WITH PT. ALL MONITORS IN PLACE.
--- NOTE | 2019-05-19 16:05 | NUR ---
SPRITE PROVIDED TO PT PER ERP.
[2019-05-19 16:44] LABS: BASOPHILS # (AUTO) 0.02 x10^3/uL (0-0.1); BASOPHILS % (AUTO) 0 % (0-1); EOSINOPHILS % (AUTO) 0 % (1-7); LYMPHOCYTES # (AUTO) 1.14 x10^3/uL (1-3.4); LYMPHOCYTES % (AUTO) 12 % (22-44); MD NO; MEAN CORPUSCULAR HEMOGLOBIN 31.1 pg (27.0-34.8); MEAN CORPUSCULAR HGB CONC 33.7 g/dL (32.4-35.8); MEAN CORPUSCULAR VOLUME 92.4 fL (80-100); MEAN PLATELET VOLUME 8.6 fL (7.4-10.4); MONOCYTES # (AUTO) 0.39 x10^3/uL (0.2-0.8); MONOCYTES % (AUTO) 4 % (2-9); NEUTROPHILS # (AUTO) 7.85 x10^3/uL (1.8-6.8); NEUTROPHILS % (AUTO) 84 % (42-75); PLATELET COUNT 253 x10^3/uL (130-400); RED BLOOD COUNT 5.11 x10^6/uL (3.82-5.3); RED CELL DISTRIBUTION WIDTH 13.5 % (9.6-15.2)
--- NOTE | 2019-05-19 16:45 | NUR ---
PT'S DAUGHTER/CAREGIVER BEV CALLED . WANTS TO BE CALLED FOR ANY UPDATES/OR REGARDING DISCHARGE. STATES PT WILL HAVE TO TAKE CAB HOME.
[2019-05-19 16:56] LABS: ALBUMIN 3.7 g/dL (3.4-5.0); ANION GAP 6 mmol/L (5-15); CHLORIDE 106 mmol/L (98-107)
[2019-05-19 17:01] LABS: ALANINE AMINOTRANSFERASE 11 U/L (12-78); ALKALINE PHOSPHATASE 93 U/L (45-117); BILIRUBIN,TOTAL 0.5 mg/dL (0.2-1.0); CREATININE 0.75 mg/dL (0.55-1.02); TOTAL PROTEIN 7.5 g/dL (6.4-8.2)
--- NOTE | 2019-05-19 17:15 | NUR ---
PT AMBULATED TO BR WITH STAND BY ASSIST. INSTRUCTED ON CLEAN CATCH URINE SAMPLE.
[2019-05-19 17:27] LABS: MICROSCOPIC NOT IND
[2019-05-19 17:32] LABS: CULTURE INDICATED? NO
[2019-05-19 18:29] VITALS: BP 107/71
--- NOTE | 2019-05-19 18:40 | NUR ---
CALLED PT'S DAUGHTER BEV AND RV'WD RX AND D/C INSTRUCTIONS WITH HER. PER DAUGHTER, OKAY FOR PT TO TAKE CAB HOME. D/C INSTRUCTIONS & RX RV'WD WITH PT, SHE VERBALIZES UNDERSTANDING. CAB VOUCHER PROVIDED TO PT. PT AMBULATED TO ED LOBBY TO WAIT FOR CAB WITHOUT DIFFICULTY.
== END 2019-05-19 18:48 | disposition home or self-care (01) ==
LOC: ED 18:05
DX: G40.802 Other epilepsy, not intractable, without status epilepticus (principal); L03.032 Cellulitis of left toe
CPT/HCPCS: 36415; 80053; 81003; 83605; 85025; 99283

== ENCOUNTER 2019-06-15 02:15 | Emergency (ER) | payer MEDICAID ==
[~2019-06-15] VITALS: Ht 162.6 cm; Wt 48.0 kg
[~2019-06-15 02:15] MED LIST changes: +CLON-364 PO; -CLON0.5T11 PO; +SIMV20TA19 PO; -SIMV20TA3 PO
[2019-06-15] MEDS ORDERED: PHENYTOIN 100 MG CAPSULE PO ONE (02:30)
--- NOTE | 2019-06-15 02:35 | NUR ---
Pt presents to ed c/o szx2 tonight. One witnessed by [facility]. Described as tonic clonic lasting multiple minutes. Given 5 mg versed im. No incontinence or oral trauma noted. Postictal for remsa and gcs of 12, a+ox0 for [facility]. Iv established MEDICARE COORDINATOR. and fsbg of 136 obtained. Pt still appears postictal in ed, but gcs of 14 and following commands. A+ox2 at this time, but still lethargic and acutely confused. Neuro otherwise appears intact. EKG accomplished and sz precautions applied.
[2019-06-15] MEDS ORDERED: PHENYTOIN 100 MG CAPSULE ONE (02:39)
--- NOTE | 2019-06-15 02:45 | NUR ---
Per erp, dilantin po to be non-admin and keppra admin instead.
[2019-06-15] MEDS ORDERED: LEVETIRACETAM 1,000 MG in SODIUM CHLORIDE 0.9% 100 ML IV ONE (03:00)
--- NOTE | 2019-06-15 03:05 | NUR ---
Pt gcs of 15 and a+ox3 at this time. ERP made aware.
[2019-06-15 03:11] LABS: ANION GAP 13 mmol/L (5-15); CHLORIDE 102 mmol/L (98-107); CREATININE 0.87 mg/dL (0.55-1.02)
[2019-06-15 03:12] VITALS: BP 135/88
[2019-06-15 03:35] LABS: BASOPHILS # (AUTO) 0.02 x10^3/uL (0-0.1); BASOPHILS % (AUTO) 0 % (0-1); EOSINOPHILS # (AUTO) 0.09 x10^3/uL (0-0.4); EOSINOPHILS % (AUTO) 1 % (1-7); LYMPHOCYTES # (AUTO) 1.31 x10^3/uL (1-3.4); LYMPHOCYTES % (AUTO) 14 % (22-44); MD NO; MEAN CORPUSCULAR HEMOGLOBIN 31.3 pg (27.0-34.8); MEAN CORPUSCULAR HGB CONC 33.9 g/dL (32.4-35.8); MEAN CORPUSCULAR VOLUME 92.3 fL (80-100); MEAN PLATELET VOLUME 8.4 fL (7.4-10.4); MONOCYTES % (AUTO) 5 % (2-9); NEUTROPHILS % (AUTO) 80 % (42-75); PLATELET COUNT 247 x10^3/uL (130-400); RED BLOOD COUNT 4.71 x10^6/uL (3.82-5.3); RED CELL DISTRIBUTION WIDTH 13.3 % (9.6-15.2)
--- NOTE | 2019-06-15 03:51 | NUR ---
Pt back to normal mentation a+ox4 and gcs 15. Given jagjit crackers and juice for borderline hypoglycemia, per ERP verbal order.
--- NOTE | 2019-06-15 04:26 | NUR ---
Family called to give pt ride home. Pt family does not have a car. States to give taxi voucher home. Will assess pt stability to take taxi home.
== END 2019-06-15 04:56 | disposition home or self-care (01) ==
LOC: ED 03:16
DX: G40.909 Epilepsy, unspecified, not intractable, without status epilepticus (principal); G30.9 Alzheimer's disease, unspecified; Z72.9 Problem related to lifestyle, unspecified
CPT/HCPCS: 36415; 80048; 80307; 85025; 93005; 96374; 99284; J1953

== ENCOUNTER 2019-06-16 10:10 | Inpatient (IN) | payer MEDICAID ==
[~2019-06-16] VITALS: Ht 167.6 cm; Wt 48.5 kg
--- NOTE | 2019-06-16 10:47 | NUR ---
PT BIB BY AKIL "WAS FOUND OUTSIDE WANDERING AROUND HER APARTMENT BUILDING. MAY HAVE LEFT IN THE MIDDLE OF THE NIGHT". PT WAS HERE YESTERDAY FOR A SIMILAR SITUATION. PT HAS BEEN A0X2 AND COMBATIVE. PT HAS HX IS SEIZURES AND IS A HIGH RISK. SHE TRIED TO GET OUT OF BED AND SHE WAS COMBATIVE WHEN WE PLACED HER BACK INTO BED. SHE IS CURRENTLY RESTING IN BED AND HAS A TECH OUTSIDE HER ROOM WATCHING HER TO MAKE SURE SHE IS SAFE. FAMILY HAS BEEN CALLED AND IS EN ROUTE. SOCIAL WORK HAS ALSO BEEN CALLED. PT IS REFUSING TO HAVE HER TEMP TAKEN.
--- NOTE | 2019-06-16 11:59 | NUR ---
PT IS REFUSING TO WEAR PULSE OX. PT ALSO REFUSED BLOOD DRAW. PTS FAMILY STILL HAS NOT ARRIVED.
--- NOTE | 2019-06-16 12:22 | NUR ---
PT STILL REFUSING LABS. DAUGHTER HAS ARRIVED AND IS SPEAKING WITH AIRCRAFT STRUCTURAL DESIGN ENGINEER
[2019-06-16] MEDS ORDERED: HALOPERIDOL 5 MG/ML ONE (12:43)
[2019-06-16] MEDS ORDERED: PLEASE ENTER WEIGHT MC SCH (13:00)
[2019-06-16] MEDS ORDERED: HALOPERIDOL 5 MG/ML IM ONE (13:00)
[2019-06-16 13:17] LABS: ALANINE AMINOTRANSFERASE 12 U/L (12-78); ALBUMIN 3.9 g/dL (3.4-5.0); ANION GAP 14 mmol/L (5-15); CALCIUM 9.1 mg/dL (8.5-10.1); CHLORIDE 98 mmol/L (98-107); CREATININE 0.76 mg/dL (0.55-1.02); SALICYLATE LEVEL 1.8 mg/dL (2.8-20.0)
[2019-06-16 13:21] LABS: BASOPHILS # (AUTO) 0.01 x10^3/uL (0-0.1); BASOPHILS % (AUTO) 0 % (0-1); EOSINOPHILS # (AUTO) 0.16 x10^3/uL (0-0.4); EOSINOPHILS % (AUTO) 1 % (1-7); LYMPHOCYTES # (AUTO) 1.17 x10^3/uL (1-3.4); LYMPHOCYTES % (AUTO) 9 % (22-44); MD NO; MEAN CORPUSCULAR HEMOGLOBIN 31.4 pg (27.0-34.8); MEAN CORPUSCULAR HGB CONC 34.5 g/dL (32.4-35.8); MEAN CORPUSCULAR VOLUME 91.1 fL (80-100); MEAN PLATELET VOLUME 8.8 fL (7.4-10.4); MONOCYTES # (AUTO) 0.83 x10^3/uL (0.2-0.8); MONOCYTES % (AUTO) 6 % (2-9); NEUTROPHILS # (AUTO) 10.79 x10^3/uL (1.8-6.8); NEUTROPHILS % (AUTO) 83 % (42-75); PLATELET COUNT 277 x10^3/uL (130-400); RED BLOOD COUNT 4.81 x10^6/uL (3.82-5.3); RED CELL DISTRIBUTION WIDTH 13.4 % (9.6-15.2)
--- NOTE | 2019-06-16 13:22 | NUR ---
STILL REFUSING TEMP. DID ALLOW HEART MONITOR TO BE CONNECTED. UA SENT
--- NOTE | 2019-06-16 13:24 | NUR ---
PT HAS BEEN UNCOOPERATTIVE AND AT TIMES COMBATIVE FOR ENTIRE LENGTH OF STAY. PT HAS REFUSED TO GIVE BLOOD AND IN ORDER TO CLEAR HER MEDICALLY, PER DR MESSER, 4 STAFF MEMBERS HELD HER DOWN IN ORDER TO ADM MEDS AND DRAW BLOOD. PLAN WAS DISCUSSED WITH DAUGHTER BEFORE HAND AND SHE AGREED, SAYING "DO WHAT YOU GOTTA DO". DAUGHTER ALSO STATED SHE HAS BEEN "ALTERED FROM HER BASELINE BEHAVIOR STARTING YESTERDAY".
[2019-06-16 13:30] LABS: MICROSCOPIC NOT IND
[2019-06-16 13:32] LABS: CULTURE INDICATED? NO
[2019-06-16 13:37] LABS: ALKALINE PHOSPHATASE 107 U/L (45-117); TOTAL PROTEIN 7.3 g/dL (6.4-8.2)
--- NOTE | 2019-06-16 14:41 | NUR ---
PT IS REFUSING IV INSERTION. SPOKE WITH DR MESSER ABOUT NEED FOR IV AND HE SAID TO HOLD OFF ON GIVING HER OWN FOR FEAR OF "SHE MAY TAKE IT OUT ANYWAYS"
[2019-06-16] MEDS ORDERED: SODIUM CHLORIDE FLUSH 10ML SYR IVF PRN (15:00)
[2019-06-16] MEDS: PLEASE ENTER WEIGHT MC SCH ×2 (15:00→20:19)
[2019-06-16] MEDS: NICOTINE 7 MG/24 HR PATCH.TD24 TD SCH (17:00)
[2019-06-16] MEDS ORDERED: HALOPERIDOL 5 MG/ML IVPush PRN (17:00)
[2019-06-16] MEDS ORDERED: ONDANSETRON 2MG/ML, 2ML IVPush PRN (17:00)
[2019-06-16] MEDS ORDERED: POTASSIUM CHLORIDE 20 MEQ TAB.ER.PRT PO ONE (17:00)
[2019-06-16] MEDS ORDERED: LORazepam 2 MG/ML, 1ML IVPush PRN (17:00)
[2019-06-16] MEDS ORDERED: ACETAMINOPHEN 325 MG TABLET PO PRN (17:00)
[2019-06-16 17:31] LABS: FREE T4 (FREE THYROXINE) 1.37 ng/dL (0.76-1.46)
[2019-06-16] MEDS: ENOXAPARIN 40 MG/0.4 ML SQ SCH (18:00)
[2019-06-16] MEDS ORDERED: LEVETIRACETAM 500 MG TABLET PO SCH (21:00)
[2019-06-16 21:44] VITALS: BP 103/65
[2019-06-17 08:00] VITALS: BP 102/64
[2019-06-17 09:26] LABS: AMPHETAMINE SCREEN, URINE Negative (Negative); BARBITURATE SCREEN, URINE Negative (Negative); BENZODIAZEPINE SCREEN, URINE Positive (Negative); CANNABINOID SCREEN, URINE Positive (Negative); COCAINE SCREEN, URINE Negative (Negative); METHADONE SCREEN, URINE Negative (Negative); OPIATE SCREEN, URINE Negative (Negative)
[2019-06-17 11:49] LABS: ANION GAP 12 mmol/L (5-15); CALCIUM 8.3 mg/dL (8.5-10.1); CHLORIDE 102 mmol/L (98-107); CREATININE 0.88 mg/dL (0.55-1.02)
[2019-06-17 12:37] LABS: BASOPHILS # (AUTO) 0.05 x10^3/uL (0-0.1); BASOPHILS % (AUTO) 1 % (0-1); EOSINOPHILS # (AUTO) 0.01 x10^3/uL (0-0.4); EOSINOPHILS % (AUTO) 0 % (1-7); LYMPHOCYTES # (AUTO) 1.56 x10^3/uL (1-3.4); LYMPHOCYTES % (AUTO) 18 % (22-44); MD SCAN; MEAN CORPUSCULAR HEMOGLOBIN 31.2 pg (27.0-34.8); MEAN CORPUSCULAR HGB CONC 33.9 g/dL (32.4-35.8); MEAN CORPUSCULAR VOLUME 92.1 fL (80-100); MEAN PLATELET VOLUME 10.1 fL (7.4-10.4); MONOCYTES # (AUTO) 0.46 x10^3/uL (0.2-0.8); MONOCYTES % (AUTO) 5 % (2-9); NEUTROPHILS # (AUTO) 6.52 x10^3/uL (1.8-6.8); NEUTROPHILS % (AUTO) 76 % (42-75); PLATELET COUNT 181 x10^3/uL (130-400); RED BLOOD COUNT 4.53 x10^6/uL (3.82-5.3); RED CELL DISTRIBUTION WIDTH 13.8 % (9.6-15.2)
[2019-06-17] MEDS: LEVETIRACETAM 500 MG in SODIUM CHLORIDE 0.9% 100 ML IV SCH (13:02)
[2019-06-17 13:43] VITALS: BP 111/62
[2019-06-17] MEDS ORDERED: POTASSIUM CHLORIDE 20 MEQ TAB.ER.PRT PO ONE (14:00)
[2019-06-17] MEDS ORDERED: POTASSIUM CHLORIDE 40 MEQ in SODIUM CHLORIDE 0.9% 500 ML IV ONE (14:00)
[2019-06-17] MEDS: NICOTINE 7 MG/24 HR PATCH.TD24 TD SCH (17:34)
[2019-06-17] MEDS: ENOXAPARIN 40 MG/0.4 ML SQ SCH (17:35)
[2019-06-17 19:23] VITALS: BP 124/81
[2019-06-18] VITALS (9 sets, daily range): BP systolic 80–126; BP diastolic 39–70
[2019-06-18] MEDS ORDERED: SODIUM CHLORIDE 0.9%, 500ML IVBOLUS ONE (01:30)
[2019-06-18] MEDS ORDERED: SODIUM CHLORIDE 0.9% 1,000ML IVBOLUS ONE ×2 (02:00→05:00)
[2019-06-18] MEDS: LEVETIRACETAM 500 MG in SODIUM CHLORIDE 0.9% 100 ML IV SCH ×2 (04:12→16:41)
[2019-06-18 05:05] LABS: ANION GAP 6 mmol/L (5-15); CALCIUM 7.3 mg/dL (8.5-10.1); CHLORIDE 114 mmol/L (98-107); CREATININE 0.58 mg/dL (0.55-1.02)
[2019-06-18 06:08] LABS: ALANINE AMINOTRANSFERASE 10 U/L (12-78); ALBUMIN 2.4 g/dL (3.4-5.0); ANION GAP 6 mmol/L (5-15); CALCIUM 7.3 mg/dL (8.5-10.1); CHLORIDE 115 mmol/L (98-107)
[2019-06-18 06:16] LABS: ALKALINE PHOSPHATASE 67 U/L (45-117); BASOPHILS # (AUTO) 0.04 x10^3/uL (0-0.1); BASOPHILS % (AUTO) 1 % (0-1); BILIRUBIN,TOTAL 0.3 mg/dL (0.2-1.0); CREATININE 0.61 mg/dL (0.55-1.02); EOSINOPHILS # (AUTO) 0.06 x10^3/uL (0-0.4); EOSINOPHILS % (AUTO) 1 % (1-7); LYMPHOCYTES # (AUTO) 2.09 x10^3/uL (1-3.4); LYMPHOCYTES % (AUTO) 37 % (22-44); MD NO; MEAN CORPUSCULAR HGB CONC 32.9 g/dL (32.4-35.8); MEAN CORPUSCULAR VOLUME 94.1 fL (80-100); MEAN PLATELET VOLUME 8.8 fL (7.4-10.4); MONOCYTES # (AUTO) 0.47 x10^3/uL (0.2-0.8); MONOCYTES % (AUTO) 8 % (2-9); NEUTROPHILS # (AUTO) 3.05 x10^3/uL (1.8-6.8); NEUTROPHILS % (AUTO) 54 % (42-75); PLATELET COUNT 196 x10^3/uL (130-400); RED BLOOD COUNT 3.72 x10^6/uL (3.82-5.3); RED CELL DISTRIBUTION WIDTH 13.9 % (9.6-15.2); TOTAL PROTEIN 4.9 g/dL (6.4-8.2)
[2019-06-18] MEDS: MIDODRINE 5 MG TABLET PO SCH ×3 (09:33→20:27)
[2019-06-18] MEDS ORDERED: OXYC5TAB3 PO (12:10)
[2019-06-18] MEDS: DOCUSATE 100 MG CAPSULE PO PRN (16:12)
[2019-06-18] MEDS: NICOTINE 7 MG/24 HR PATCH.TD24 TD SCH (16:42)
[2019-06-18] MEDS: ENOXAPARIN 40 MG/0.4 ML SQ SCH (16:42)
[2019-06-19] MEDS: LEVETIRACETAM 500 MG in SODIUM CHLORIDE 0.9% 100 ML IV SCH (04:31)
[2019-06-19 04:35] VITALS: BP 109/64
[2019-06-19 06:47] LABS: ANION GAP 3 mmol/L (5-15); CALCIUM 8.6 mg/dL (8.5-10.1); CHLORIDE 111 mmol/L (98-107); CREATININE 0.61 mg/dL (0.55-1.02)
[2019-06-19 07:04] VITALS: BP 129/88
[2019-06-19 07:13] LABS: MD YES; MEAN CORPUSCULAR HEMOGLOBIN 31.1 pg (27.0-34.8); MEAN CORPUSCULAR HGB CONC 33.5 g/dL (32.4-35.8); MEAN CORPUSCULAR VOLUME 92.6 fL (80-100); MEAN PLATELET VOLUME 9.1 fL (7.4-10.4); PLATELET COUNT 191 x10^3/uL (130-400); RED BLOOD COUNT 4.69 x10^6/uL (3.82-5.3); RED CELL DISTRIBUTION WIDTH 13.7 % (9.6-15.2)
[2019-06-19 07:37] LABS: <PLATELET ESTIMATE> ADEQUATE; <PLT MORPHOLOGY> NORMAL PLT MORPH; <RBC MORPHOLOGY> NORMAL; LYMPH#(MANUAL) 2.55 x10^3/uL (1-3.4); LYMPHS% (MANUAL) 50 % (22-44); MONOS% (MANUAL) 4 % (2-9); SEG#(MANUAL) 2.35 x10^3/uL (1.8-6.8); SEGS% (MANUAL) 46 % (42-75)
[2019-06-19] MEDS: MIDODRINE 5 MG TABLET PO SCH ×3 (08:01→20:17)
[2019-06-19 14:42] VITALS: BP 107/66
[2019-06-19] MEDS: NICOTINE 7 MG/24 HR PATCH.TD24 TD SCH (15:39)
[2019-06-19] MEDS: ENOXAPARIN 40 MG/0.4 ML SQ SCH (15:46)
[2019-06-19] MEDS ORDERED: HALOPERIDOL 5 MG/ML IM PRN (17:00)
[2019-06-19] MEDS ORDERED: GADOTERATE 7.5 MMOL/15 ML SYR ONE (17:00)
[2019-06-19 18:33] VITALS: BP 97/61
[2019-06-19 20:06] VITALS: BP 86/50
[2019-06-19] MEDS: DOCUSATE 100 MG CAPSULE PO PRN (20:17)
[2019-06-19] MEDS: LEVETIRACETAM 500 MG TABLET PO SCH (20:17)
[2019-06-19 23:08] VITALS: BP 98/58
[2019-06-20 01:48] VITALS: BP 88/52
[2019-06-20] MEDS ORDERED: SODIUM CHLORIDE 0.9%, 500ML IVBOLUS ONE (03:00)
[2019-06-20 06:05] VITALS: BP 96/68
[2019-06-20 07:04] VITALS: BP 97/63
[2019-06-20] MEDS: LEVETIRACETAM 500 MG TABLET PO SCH ×2 (08:04→21:43)
[2019-06-20] MEDS: MIDODRINE 5 MG TABLET PO SCH ×4 (08:05→21:43)
[2019-06-20 12:58] VITALS: BP 102/64
[2019-06-20] MEDS: NICOTINE 7 MG/24 HR PATCH.TD24 TD SCH (15:51)
[2019-06-20] MEDS: ENOXAPARIN 40 MG/0.4 ML SQ SCH (15:52)
[2019-06-20 21:33] VITALS: BP 89/58
[2019-06-20] MEDS: DOCUSATE 100 MG CAPSULE PO PRN (21:42)
[2019-06-21 01:14] VITALS: BP 93/60
[2019-06-21 01:55] VITALS: BP 96/67
[2019-06-21 07:18] VITALS: BP 114/67
[2019-06-21] MEDS: LEVETIRACETAM 500 MG TABLET PO SCH (08:37)
[2019-06-21] MEDS: MIDODRINE 5 MG TABLET PO SCH ×2 (08:37→16:25)
[2019-06-21 13:45] VITALS: BP 94/60
[2019-06-21] MEDS ORDERED: LEVE500T53 PO (15:55)
[2019-06-21] MEDS: NICOTINE 7 MG/24 HR PATCH.TD24 TD SCH (16:25)
== END 2019-06-21 17:49 | disposition home or self-care (01) | DRG 52 ==
LOC: ED 10:14 → EDIP 14:45 → OBSVTOIN 14:45 → INTOOBSV 14:45 → 3N 15:48
PROVIDERS: ADMIT Internal Medicine; ATTEND Internal Medicine
DX: G92 Toxic encephalopathy (principal); I95.9 Hypotension, unspecified; E87.1 Hypo-osmolality and hyponatremia; G30.9 Alzheimer's disease, unspecified; F02.80 Dementia in other diseases classified elsewhere, unspecified severity, without behavioral disturbance, psychotic disturbance, mood disturbance, and anxiety; D64.9 Anemia, unspecified; D72.829 Elevated white blood cell count, unspecified; E87.6 Hypokalemia; G40.909 Epilepsy, unspecified, not intractable, without status epilepticus; Z91.14 Patient's other noncompliance with medication regimen; Z72.0 Tobacco use; Z88.2 Allergy status to sulfonamides
CPT/HCPCS: 36415; 70450; 70553; 80048; 80053; 80185; 80307; 81003; 82140; 82607; 83605; 83690; 83735; 84100; 84439; 84443; 85025; 96372; G0378; J1953; J3480; A9575; J1630; J2060; J7030; J7040

== ENCOUNTER 2019-07-13 23:45 | Emergency (ER) | payer MEDICAID ==
[~2019-07-13] VITALS: Ht 165.1 cm; Wt 55.0 kg
[~2019-07-13 23:45] MED LIST changes: +OXYC5TAB3 PO
--- NOTE | 2019-07-14 00:09 | NUR ---
THIS IS A 58 YO FEMALE BIB [facility] FROM HOME FOR WITNESSED (BY DAUGHTER) TONIC-CLONIC SEIZURE. PER AKIL, DAUGHTER STATED SEIZURE LASTED 5 MINUTES, BUT UNKNOWN IF DAUGHTER WAS COUNTING POSTICTAL STATE. PATIENT HAS HX OF SEIZURES AND DEMENTIA, PATIENT A&OX3 AT THIS TIME, PATIENT UNAWARE OF EVENTS LEADING TO COMING TO HOSPITAL. PIV PLACED BY AKIL CULINARY SPECIALIST, PATIENT SPEAKING IN FULL SENTENCES. ALL MONITORING IN PLACE, NSR ON DIRECTOR RELIGIOUS EDUCATION. SEIZURE PADS IN PLACE, PATIENT PLACED ON BEDPAN DUE TO NEED TO URINATE. PER AKIL, DAUGHTER ON THE WAY
[2019-07-14 00:57] LABS: BASOPHILS % (AUTO) 1 % (0-1); EOSINOPHILS # (AUTO) 0.06 x10^3/uL (0-0.4); EOSINOPHILS % (AUTO) 1 % (1-7); LYMPHOCYTES # (AUTO) 1.58 x10^3/uL (1-3.4); LYMPHOCYTES % (AUTO) 15 % (22-44); MD NO; MEAN CORPUSCULAR HGB CONC 33.6 g/dL (32.4-35.8); MEAN CORPUSCULAR VOLUME 92.4 fL (80-100); MEAN PLATELET VOLUME 8.5 fL (7.4-10.4); MONOCYTES # (AUTO) 0.47 x10^3/uL (0.2-0.8); MONOCYTES % (AUTO) 5 % (2-9); NEUTROPHILS % (AUTO) 79 % (42-75); PLATELET COUNT 251 x10^3/uL (130-400); RED BLOOD COUNT 4.57 x10^6/uL (3.82-5.3); RED CELL DISTRIBUTION WIDTH 13.6 % (9.6-15.2)
--- NOTE | 2019-07-14 00:57 | NUR ---
PATIENT OFF BEDPAN, LINENS CHANGED, AWAITING LAB TO DRAW BLOOD
[2019-07-14 01:06] LABS: ALBUMIN 3.3 g/dL (3.4-5.0); ANION GAP 6 mmol/L (5-15); CALCIUM 8.7 mg/dL (8.5-10.1); CHLORIDE 99 mmol/L (98-107); CREATININE 0.57 mg/dL (0.55-1.02)
--- NOTE | 2019-07-14 01:12 | NUR ---
[facility] AMBULATORY IN ROOM TO COMMODE
--- NOTE | 2019-07-14 01:50 | NUR ---
Break RN: Pt sleeping with resp even and unlabored. Awaiting daughter to d/c pt home.
--- NOTE | 2019-07-14 02:20 | NUR ---
CALLED DAUGHTER, DAUGHTER WAS SUPPOSED TO FOLLOW EMS, DAUGHTER STATES SHE WILL BE HERE IN THE NEXT HOUR
[2019-07-14 03:57] VITALS: BP 118/69
== END 2019-07-14 03:59 | disposition home or self-care (01) ==
LOC: ED 07-14 03:30
DX: G40.309 Generalized idiopathic epilepsy and epileptic syndromes, not intractable, without status epilepticus (principal); F17.200 Nicotine dependence, unspecified, uncomplicated
CPT/HCPCS: 36415; 80048; 82040; 85025; 93005; 99284

== ENCOUNTER 2019-07-18 09:43 | Emergency (ER) | payer MEDICAID ==
[~2019-07-18] VITALS: Ht 165.1 cm; Wt 55.0 kg
--- NOTE | 2019-07-18 09:52 | NUR ---
58 Y/O FEMALE BIB AMBULANCE WITH C/O SEIZURE. PT WAS AMBULATORY WITH STEADY GAIT TO ROOM WITH EMS. PT CHANGED INTO GOWN AND PLACED ON CONT PULSE OX,NIBP, AIRPLANE PILOT HELPER. PER REPORT PT STATED SHE FELT AN AURA THEN WOKE UP ON COUCH. AFTER SHE WALKED TO THE [place] AND CALLED EMS FOR HELP. PER PT "I DIDN'T TAKE MY MEDS TODAY. I DON'T REMEMBER IF I TOOK IT AFTER."
[2019-07-18] MEDS ORDERED: SODIUM CHLORIDE FLUSH 10ML SYR IVF ONE (10:00)
--- NOTE | 2019-07-18 10:19 | NUR ---
PT TO IMAGING
--- NOTE | 2019-07-18 10:32 | NUR ---
PT BACK FROM IMAGING. LAB BEDSIDE. NADN. NO NEEDS REQUESTED AT THIS TIME.
--- NOTE | 2019-07-18 10:35 | NUR ---
LATE ENTRY FOR 1015 CALLED AND LEFT MESSAGE FOR DAUGHTER TO CALL.
--- NOTE | 2019-07-18 10:38 | NUR ---
SPOKE WITH SON, LAWANDA. SON STATES "SHE LEFT THE HOUSE BEFORE I GOT UP THIS MORNING." SON WAS ASKED TO COME DOWN TO ER. SON STATED "CAN I CALL YOU BACK IN 15 MINS?" WILL WAIT FOR CALL BACK.
[2019-07-18 10:47] LABS: BASOPHILS # (AUTO) 0.06 x10^3/uL (0-0.1); BASOPHILS % (AUTO) 1 % (0-1); EOSINOPHILS # (AUTO) 0.06 x10^3/uL (0-0.4); EOSINOPHILS % (AUTO) 1 % (1-7); LYMPHOCYTES # (AUTO) 1.41 x10^3/uL (1-3.4); LYMPHOCYTES % (AUTO) 21 % (22-44); MD NO; MEAN CORPUSCULAR HEMOGLOBIN 31.1 pg (27.0-34.8); MEAN CORPUSCULAR HGB CONC 33.3 g/dL (32.4-35.8); MEAN CORPUSCULAR VOLUME 93.4 fL (80-100); MEAN PLATELET VOLUME 8.5 fL (7.4-10.4); MONOCYTES # (AUTO) 0.26 x10^3/uL (0.2-0.8); MONOCYTES % (AUTO) 4 % (2-9); NEUTROPHILS # (AUTO) 4.81 x10^3/uL (1.8-6.8); NEUTROPHILS % (AUTO) 73 % (42-75); PLATELET COUNT 187 x10^3/uL (130-400); RED BLOOD COUNT 4.67 x10^6/uL (3.82-5.3); RED CELL DISTRIBUTION WIDTH 13.9 % (9.6-15.2)
[2019-07-18 10:51] VITALS: BP 100/71
--- NOTE | 2019-07-18 10:53 | NUR ---
SPOKE WITH DAUGHTER. DAUGHTER STATES "I WAS SLEEPING ALSO. MY BOYFRIEND TOLD MY MY MOM WAS GONE. I'M HERE AT THE HOSPITAL RIGHT NOW."
[2019-07-18 10:55] LABS: CHLORIDE 110 mmol/L (98-107)
[2019-07-18 10:56] LABS: ANION GAP 8 mmol/L (5-15); CALCIUM 8.1 mg/dL (8.5-10.1); CREATININE 0.73 mg/dL (0.55-1.02)
--- NOTE | 2019-07-18 11:16 | NUR ---
PT'S DAUGHTER REQUESTS THAT SHE IS CALLED WHEN PT IS TO BE DC'ED. CK PEREZ [phone]
--- NOTE | 2019-07-18 11:47 | NUR ---
PT AMBULATORY WITH STEADY GAIT TO BATHROOM.
--- NOTE | 2019-07-18 12:36 | NUR ---
Patient/Caregiver given discharge instructions and they have confirmed that they understand the instructions. Patient ambulatory with steady gait. PT GIVEN TAXI VOUCHER. PT LEFT WITH ALL PERSONAL BELONGINGS.
--- NOTE | 2019-07-18 13:10 | NUR ---
LATE ENTRY FOR 1235. CALLED DAUGHTER CK AND EXPRESSED PT IS READY FOR DISCHARGE. DAUGHTER STATES "I CAN'T GET THERE. I HAVE NO CAR. PLEASE SEND HER IN A CAB." THIS RN SAID WE COULD DO THAT. I VERIFIED ADDRESS. PER DAUGHTER, ADDRESS WAS [address]
== END 2019-07-18 12:38 ==
LOC: ED 12:32
DX: G30.9 Alzheimer's disease, unspecified (principal); F02.80 Dementia in other diseases classified elsewhere, unspecified severity, without behavioral disturbance, psychotic disturbance, mood disturbance, and anxiety; F17.200 Nicotine dependence, unspecified, uncomplicated
CPT/HCPCS: 36415; 70450; 80048; 82040; 85025; 93005; 99285

== ENCOUNTER 2019-07-29 10:04 | Emergency (ER) | payer MEDICAID ==
[~2019-07-29] VITALS: Ht 162.6 cm; Wt 55.0 kg
[2019-07-29 10:12] VITALS: BP 121/60
--- NOTE | 2019-07-29 10:18 | NUR ---
58 Y/O FEMALE BIB AMBULANCE WITH C/O "I FEEL LIKE I MAY HAVE HAD A SEIZURE." PT HAS HX OF SEIZURES AND DEMENTIA. PT WAS AMBULATORY WITH STEADY GAIT TO ROOM WITH EMS. FSBS WAS 169 PER EMS. NADN. PT GIVEN WARM BLANKETS. NO C/O PAIN. PT PLACED ON CONT PULSE OX,NIBP.
--- NOTE | 2019-07-29 11:53 | NUR ---
SPOKE WITH DAUGHTER, SHE STATED "SHE DID NOT HAVE A SEIZURE. I SAW HER RUNNING DOWN THE STREET AND TOLD HER TO COME BACK. AND SHE DIDN'T. SHE TOLD ME TO CALL THE ADVERTISING OPERATIONS COORDINATOR." EDUCATED DAUGHTER AFTER SHE EATS SHE CAN COME PICK HER UP./
--- NOTE | 2019-07-29 12:18 | NUR ---
PT GIVEN MEAL TRAY. PT WAS AMBULATORY WITH STEADY GAIT TO BATHROOM.
--- NOTE | 2019-07-29 13:52 | NUR ---
Patient/Caregiver given discharge instructions and they have confirmed that they understand the instructions. Patient ambulatory with steady gait. PT PLACED IN CAB. DAUGHTER CALLED AND WAS INFORMED THAT SHE IS ON HER WAY HOME. PT LEFT WITH ALL PERSONAL BELONGINGS.
== END 2019-07-29 13:54 | disposition home or self-care (01) ==
LOC: ED 10:14
DX: G40.909 Epilepsy, unspecified, not intractable, without status epilepticus (principal); F17.200 Nicotine dependence, unspecified, uncomplicated; F03.90 Unspecified dementia, unspecified severity, without behavioral disturbance, psychotic disturbance, mood disturbance, and anxiety
CPT/HCPCS: 99283

== ENCOUNTER 2019-07-31 13:24 | Emergency (ER) | payer MEDICAID ==
[~2019-07-31] VITALS: Ht 167.6 cm; Wt 52.3 kg
[2019-07-31 13:32] VITALS: BP 107/68
--- NOTE | 2019-07-31 13:38 | NUR ---
PT BIB EMS. PT REPORTED BEING KICKED IN THE ABDOMEN BY HER DAUGHTER, STATES "I DONT WANT TO LIVE THERE ANYMORE. PT ALSO REPORS SEIZURE TODAY, UNSURE IF SHE TOOK HER MEDICATIONS. PT ACTING FRUSTRATED, REPORTS "YOU WOULD BE TOO IF YOU LIVE WITH HER" REFERRING TO HER DAUGHTER. PT GENERALLY UNCOOPERATIVE. PROVIDED WARM BLANKETS FOR COMFORT, MONITORING APPLIED, CALL LIGHT WITHIN REACH, ALL SAFETY MEASURE IN PLACE.
--- NOTE | 2019-07-31 14:33 | NUR ---
lab called and will be redrawing pt
[2019-07-31 14:36] LABS: ALBUMIN 3.5 g/dL (3.4-5.0); ANION GAP 8 mmol/L (5-15); CALCIUM 8.7 mg/dL (8.5-10.1); CHLORIDE 107 mmol/L (98-107); CREATININE 0.72 mg/dL (0.55-1.02)
[2019-07-31 14:54] LABS: BASOPHILS # (AUTO) 0.03 x10^3/uL (0-0.1); BASOPHILS % (AUTO) 0 % (0-1); EOSINOPHILS # (AUTO) 0.02 x10^3/uL (0-0.4); EOSINOPHILS % (AUTO) 0 % (1-7); LYMPHOCYTES # (AUTO) 1.65 x10^3/uL (1-3.4); LYMPHOCYTES % (AUTO) 15 % (22-44); MD NO; MEAN CORPUSCULAR HEMOGLOBIN 31.2 pg (27.0-34.8); MEAN CORPUSCULAR HGB CONC 33.8 g/dL (32.4-35.8); MEAN CORPUSCULAR VOLUME 92.3 fL (80-100); MEAN PLATELET VOLUME 8.7 fL (7.4-10.4); MONOCYTES # (AUTO) 0.52 x10^3/uL (0.2-0.8); MONOCYTES % (AUTO) 5 % (2-9); NEUTROPHILS # (AUTO) 8.51 x10^3/uL (1.8-6.8); NEUTROPHILS % (AUTO) 79 % (42-75); PLATELET COUNT 272 x10^3/uL (130-400); RED BLOOD COUNT 5.03 x10^6/uL (3.82-5.3); RED CELL DISTRIBUTION WIDTH 13.6 % (9.6-15.2)
--- NOTE | 2019-07-31 14:55 | NUR ---
REPORT TO BENITO LAST.
--- NOTE | 2019-07-31 14:56 | NUR ---
REPORT FROM BENITO TRAN. PT SITTING UP IN BED. ADDITIONAL BLANKET APPLIED FOR PT COMFORT. AWAITING LABS.
[2019-07-31] MEDS ORDERED: POTASSIUM CHLORIDE 20 MEQ TAB.ER.PRT PO ONE (15:00)
[2019-07-31] MEDS ORDERED: POTASSIUM CHLORIDE 20 MEQ TAB.ER.PRT ONE (15:52)
--- NOTE | 2019-07-31 16:33 | NUR ---
CALL TO DAUGHTER, WHO PT LIVES WITH. PER DAUGHTER, SHE DOES NOT FEEL SAFE WITH PT AND IS UNABLE TO CARE FOR HER 01/12. DAUGHTER REQUESTS SOCIAL WORK CONSULT FOR DIFFERENT OPTIONS AND LIVING PLACEMENT.
--- NOTE | 2019-07-31 16:43 | NUR ---
PT LAYING ON SIDE IN BED WATCHING TELEVISION. AWAITING ADMIT ORDERS. PT REFUSES MONITORING EQUIPMENT. SIDE RAILS UP, CALL LIGHT IN REACH.
--- NOTE | 2019-07-31 17:51 | NUR ---
PT LAYING BACK IN BED WATCHING TELEVISION. NAD NOTED AT THIS TIME. AWAITING ADMIT ORDERS.
--- NOTE | 2019-07-31 18:42 | NUR ---
plan to go home with daughter. hospitalist in contact with SW to make call to daughter, who pt normally lives with to discuss discharge. awaiting contact.
--- NOTE | 2019-07-31 19:51 | NUR ---
CONTACT MADE BY SW WITH DAUGHTER. DAUGHTER ON HER WAY TO GET PT. NAD NOTED IN PT AT THIS TIME. PT REFUSES MONITORING/BP.
== END 2019-07-31 19:53 | disposition home or self-care (01) ==
LOC: ED 13:30
DX: G30.9 Alzheimer's disease, unspecified (principal); E87.6 Hypokalemia
CPT/HCPCS: 36415; 71045; 80048; 82040; 85025; 99284

== ENCOUNTER 2019-09-20 | Emergency (ER) | payer MEDICAID ==
--- NOTE | 2019-09-20 00:43 | NUR ---
59 Y/O FEMALE VICTOR M BARNARD FROM [facility] FOR A WITNESSED SEIZURE. PT HAS A HX OF EPILEPSY, HAS BEEN OUT OF [facility] FOR UNKNOWN AMOUNT OF TIME. EMS REPORT THE PT WAS POSTICTAL UPON THEIR ARRIVAL, SHE ALSO HAD ANOTHER SEIZURE IN THE PRESENCE OF EMS. VERSED WAS ADMINISTERED IM. SEIZURE RESOLVED. PT ALSO HAS A HX OF DEMENTIA, EMS UNSURE OF NORMAL MENTAL STATUS. UPON ARRIVAL TO THE ER, THE PT IS ALERT TO SELF AND PLACE. ALL MONITORING EQUIPMENT APPLIED. SINUS TACH ON THE MONITOR. NO ECTOPY OR ST CHANGES PRESENT. ALL VITALS STABLE. FSBS 129. IV ESTABLISHED IN RIGHT FOREARM. ATTEMPTED TO DRAW LABS WITHOUT SUCCESS. DR. DAVEY HAS EVALUATED PT. WILL CONTINUE TO MONITOR. SEIZURE PRECAUTIONS IN PLACE
--- NOTE | 2019-09-20 00:54 | NUR ---
PT MEDICATED PER EMAR. 5 RIGHTS ADDRESSED.
[2019-09-20 00:57] LABS: BASOPHILS # (AUTO) 0.02 x10^3/uL (0-0.1); BASOPHILS % (AUTO) 0 % (0-1); EOSINOPHILS # (AUTO) 0.13 x10^3/uL (0-0.4); EOSINOPHILS % (AUTO) 1 % (1-7); LYMPHOCYTES # (AUTO) 1.97 x10^3/uL (1-3.4); LYMPHOCYTES % (AUTO) 21 % (22-44); MD NO; MEAN CORPUSCULAR HEMOGLOBIN 30.9 pg (27.0-34.8); MEAN CORPUSCULAR HGB CONC 33.4 g/dL (32.4-35.8); MEAN CORPUSCULAR VOLUME 92.6 fL (80-100); MEAN PLATELET VOLUME 8.4 fL (7.4-10.4); MONOCYTES # (AUTO) 0.52 x10^3/uL (0.2-0.8); MONOCYTES % (AUTO) 5 % (2-9); NEUTROPHILS # (AUTO) 6.95 x10^3/uL (1.8-6.8); NEUTROPHILS % (AUTO) 72 % (42-75); PLATELET COUNT 284 x10^3/uL (130-400); RED CELL DISTRIBUTION WIDTH 14.1 % (9.6-15.2)
[2019-09-20] MEDS ORDERED: LEVETIRACETAM 1,000 MG in SODIUM CHLORIDE 0.9% 100 ML IV ONE (01:00)
[2019-09-20 01:08] LABS: ALBUMIN 3.4 g/dL (3.4-5.0); ANION GAP 9 mmol/L (5-15); CALCIUM 8.9 mg/dL (8.5-10.1); CHLORIDE 103 mmol/L (98-107); CREATININE 0.83 mg/dL (0.55-1.02)
--- NOTE | 2019-09-20 01:29 | NUR ---
ATTEMPTED TO CALL PT'S DAUGHTER TO OBTAIN MORE HISTORY. NO ANSWER, NO WAY TO LEAVE A VOICEMAIL. WILL CONTINUE TO ATTEMPT TO GET IN TOUCH WITH FAMILY
--- NOTE | 2019-09-20 01:45 | NUR ---
PT SLEEPING. RESPIRATIONS EVEN AND UNLABORED. SINUS TACH ON THE MONITOR. NO ECTOPY OR ST CHANGES NOTED. ALL VITALS STABLE. PT TO BE DISCHARGED. CONTINUED TO MAKE MULTIPLE ATTEMPTS AT CONTACTING FAMILY WITHOUT SUCCESS.
--- NOTE | 2019-09-20 01:56 | NUR ---
I SPOKE TO THE PT'S DAUGHTER, SHE CONFIRMED THE STORY EMS PROVIDED. SHE STATES SHE WILL BE HOME IF WE SEND THE PT HOME BY CAB HOWEVER SHE DOES NOT HAVE A CAR TO COME GET HER.
--- NOTE | 2019-09-20 02:03 | NUR ---
Break RN: Patient not safe to discharge at this time due to Versed admin. Patient unable to take a taxi alone. Will arrange transport once patient is safe for discharge.
[2019-09-20 02:22] VITALS: BP 101/57
--- NOTE | 2019-09-20 03:05 | NUR ---
REPORT FROM BENITO WILSON. ASSUMING CARE AT THIS TIME.
--- NOTE | 2019-09-20 03:06 | NUR ---
REPORT TO BENITO JOHNSTON
--- NOTE | 2019-09-20 03:22 | NUR ---
PT MORE ALERT AND CAN CARRY OUT A CONVERSATION. PT STATES SHE WANTS TO GO HOME. LONG PT IS ABLE TO AMBULATE WITH STEADY GAIT, PT WILL BE GIVEN A TAXI VOUCHER AND DC HOME. PT'S DAUGHTER IS AT THE HOME AND WILL LET PT INTO HOME WHEN SHE ARRIVES.
== END 2019-09-20 03:44 | disposition home or self-care (01) ==
LOC: ED 03:09
DX: G40.919 Epilepsy, unspecified, intractable, without status epilepticus (principal); F03.90 Unspecified dementia, unspecified severity, without behavioral disturbance, psychotic disturbance, mood disturbance, and anxiety; F17.200 Nicotine dependence, unspecified, uncomplicated; R00.0 Tachycardia, unspecified
CPT/HCPCS: 36415; 80048; 82040; 85025; 93005; 96365; 99284; J1953

== ENCOUNTER 2019-11-20 16:56 | Emergency (ER) | payer MEDICAID ==
[~2019-11-20] VITALS: Ht 165.1 cm; Wt 47.9 kg
[2019-11-20] MEDS ORDERED: LEVETIRACETAM 1,000 MG in SODIUM CHLORIDE 0.9% 100 ML IV ONE (17:30)
--- NOTE | 2019-11-20 17:31 | NUR ---
FIRST CONTACT WITH PT. PT HAD POSSIBLY HAD SEIZURES TODAY. PT CONFUSED, SLURRING WORDS PER FAMILY. HAS NOT BEEN TAKING SEIZURE MEDS AT HOME FOR ABOUT 2 DAYS. PT IS NOT ABLE TO ANSWER ANY QUESTIONS. PT IS AOX0 AT THIS TIME. PT DAUGHTER STATED"AFTER OR BEFORE SZ, SHE DOES LIKE THIS" ALL MONITORS IN PLACE. CALL LIGHT WITHIN REACH.
[2019-11-20] MEDS ORDERED: LORazepam 2 MG/ML, 1ML ONE (17:36)
--- NOTE | 2019-11-20 17:40 | NUR ---
PT HAS SZ IN [facility] AT THIS TIME. PIV EST, OXY MASK ON, PT MEDICATED PER EMAR.
--- NOTE | 2019-11-20 17:57 | NUR ---
PT MEDICATED PER EMAR. PT TOLERATED WELL.
[2019-11-20] MEDS ORDERED: LORazepam 2 MG/ML, 1ML IVPush ONE (18:00)
--- NOTE | 2019-11-20 18:17 | NUR ---
PT'S DAUGHTER'S NUMBER BEV [phone]
--- NOTE | 2019-11-20 18:28 | NUR ---
PT RESTING IN [facility]. PT'S AOX4 AT THIS TIME. RESPS EVEN AND UNLABORED. ALL MONITORS IN PLACE. CALL LIGHT WITHIN REACH.
[2019-11-20 18:46] VITALS: BP 133/87
--- NOTE | 2019-11-20 18:53 | NUR ---
REPORT GIVEN TO JUDAH OLIVER.
--- NOTE | 2019-11-20 18:54 | NUR ---
Report received from BENITO Millard. This RN to assume care.
--- NOTE | 2019-11-20 19:50 | NUR ---
Spoke with daughter, who came to pick pack worker patient. Discharge instructions given. All questions and concerns addressed. Patient ambulatory with a steady gait. Belongings with patient.
== END 2019-11-20 19:51 | disposition home or self-care (01) ==
LOC: ED 17:42
DX: G40.409 Other generalized epilepsy and epileptic syndromes, not intractable, without status epilepticus (principal); R94.31 Abnormal electrocardiogram [ECG] [EKG]
CPT/HCPCS: 93005; 96365; 96375; 99284; J1953; J2060

== ENCOUNTER 2020-02-16 14:48 | Emergency (ER) | payer MEDICAID ==
[~2020-02-16] VITALS: Ht 160 cm; Wt 50.0 kg
[2020-02-16] MEDS ORDERED: LORazepam 2 MG/ML, 1ML ONE ×2 (14:52→15:21)
[2020-02-16] MEDS ORDERED: LORazepam 2 MG/ML, 1ML IVPush PRN ×2 (15:00→16:00)
--- NOTE | 2020-02-16 15:26 | NUR ---
1505: Pt brought back to room 17 from triage, actively seizing. ERP at bedside. Pt given 1 mg IM Ativan. Seizure stopped. No airway obstruction, SpO2 WNL on RA throughout seizure. PIV started. 1520: Pt having another seizure, VS stable, 1mg IV Ativan given. Daughter now at bedside
[2020-02-16] MEDS ORDERED: LEVETIRACETAM 1,000 MG in SODIUM CHLORIDE 0.9% 100 ML IV ONE (15:30)
[2020-02-16 15:37] LABS: BASOPHILS % (AUTO) 1 % (0-1); EOSINOPHILS % (AUTO) 1 % (1-7); LYMPHOCYTES % (AUTO) 33 % (22-44); MEAN CORPUSCULAR HEMOGLOBIN 30.9 pg (27.0-34.8); MEAN PLATELET VOLUME 8.9 fL (7.4-10.4); MONOCYTES % (AUTO) 8 % (2-9); NEUTROPHILS % (AUTO) 58 % (42-75); PLATELET COUNT 299 x10^3/uL (130-400); RED BLOOD COUNT 5.14 x10^6/uL (3.82-5.3); RED CELL DISTRIBUTION WIDTH 13.6 % (9.6-15.2)
--- NOTE | 2020-02-16 15:37 | NUR ---
Pt having another seizure, 1mg Ativan given. Seizure stopped
[2020-02-16 15:39] LABS: ALBUMIN 3.7 g/dL (3.4-5.0); ANION GAP 21 mmol/L (5-15); CALCIUM 8.7 mg/dL (8.5-10.1); CHLORIDE 102 mmol/L (98-107)
[2020-02-16 15:40] LABS: CREATININE 1.07 mg/dL (0.55-1.02)
--- NOTE | 2020-02-16 15:46 | NUR ---
Daughter at bedside, states that pt has not taken Keppra in 7 days. Waiting for Keppra from pharmacy. Pharmacy called, STAT request,
[2020-02-16 15:48] LABS: MD NO
--- NOTE | 2020-02-16 15:55 | NUR ---
Placed on NC at 4 L/min, pt post ictal at this time.
--- NOTE | 2020-02-16 16:01 | NUR ---
Pharmacy called 2nd time for Bridgette
--- NOTE | 2020-02-16 19:00 | NUR ---
Report rec. Pt sleeping quietly, side rails up times two, seizure pads in place. MD awaiting pt to awaken after 3mg ativan total for re-eval.
--- NOTE | 2020-02-16 19:45 | NUR ---
PT AWAKEN VERBAL AT THIS TIME, REMAINS SOMNOLENTS, IF ORITENTED TO SELF AND PLACE, SLEEPY. DAUGHTER CALLS AND AWARE OF THE PLAN OF CARE.
--- NOTE | 2020-02-16 20:48 | NUR ---
AWAKEN VERBAL, REMAINS SOMNOLENT, WILL MONITOR TILL PT SAFE FOR DISCHARGE.
--- NOTE | 2020-02-16 21:37 | NUR ---
No changes at this time, pt awakens verbal, aa and o times 3, remains quite somnolent. More warm blankets given.
--- NOTE | 2020-02-16 22:17 | NUR ---
daughter calls and notes that pts address is [address]
--- NOTE | 2020-02-16 22:40 | NUR ---
NO CHANGES AT THIS TIME.
--- NOTE | 2020-02-16 22:54 | NUR ---
PT AWAKEN VERBAL, IS AWARE THAT SHE IS IN HOSPITAL. UNABLE TO STAY AWAKE FOR LONG, IS MOVING ALL EXTREMITIES, AA AND O TIMES 3. WOULD LIKE PT TO BE MORE AWAKE BEFORE DISCHARGE. DAUGHTER NOTED IN EARLIER CONVERSATION THAT MOTHER HAS BEEN VERY SENSITIVE TO ATIVAN IN THE PAST.
--- NOTE | 2020-02-16 23:48 | NUR ---
SLEEPING QUIETLY, CONITNUES WITH NO SEIZURE ACTIVITY
--- NOTE | 2020-02-17 01:14 | NUR ---
NO CHANGES AT THIS TIME, AWAIT CLEARER FOCUS BEFORE DISCHARGE.
--- NOTE | 2020-02-17 02:07 | NUR ---
Noel aldana in ED - 02/17/20 at 0215 by MARLIN PT PROVIDED WITH SALLY CORLEY, GIVEN MONUROL FOR UTI. DISCHARGE INSTRUCTIONS GIVEN, PT DISTRACTED BY UPCOMING COURT RELATED TO A FELONY AND HER LONG STANDING HOMELESSNESS.
--- NOTE | 2020-02-17 02:15 | NUR ---
AWAKEN VERBAL, NO CHANGES, REMAINS AA AND O TIMES 3, SLEEPY, LIVES WITH DAUGHTER AND DAUGHTER REPORTS THAT PT MAY NOT RECOGNIZE SURROUNDINGS IF SHE ERE TO BE SENT HOME. DAUGHTER CURRENTLY SLEEPING AND AWARE WILL CALL FOR ANY CHANGES AND SEND MOTHER HOME IN AM WHEN MORE AWAKE.
--- NOTE | 2020-02-17 02:16 | NUR ---
Note katya in EDM - 02/17/20 at 0251 by MARLIN PT PROVIDED WITH SANDBALDEVICH, CAB VOUCHER AND RX. VERY DISTRESSED ABOUT UPCOMING COURT DATE WELL ALTERNATIVE ENERGY ENGINEER HOMELESSNESS. PT BECOMES ANGRY DURING DISCHARGE, THROWS HER BLANKET AT THIS NURSE STATES "YOUR NO HELP, JUST SENDING ME TO THE GROUP HOME". EMPATHY FOR THIS SITUATION HOWEVER PT AWARE THAT THIS IS NOT THE SOLUTION TO HER LIVING SITUATION. PT YELLING AND CUSSING, WALKED TO DISCHARGE DESK, IS AMBULATING WITH STEADY GAIT.
--- NOTE | 2020-02-17 03:15 | NUR ---
no changes, sleeping quietly, no seizure activity.
--- NOTE | 2020-02-17 04:15 | NUR ---
No changes, awaken verbal, sleepy. No seizure activity
[2020-02-17 05:14] VITALS: BP 106/64
== END 2020-02-17 02:22 ==
LOC: ED 15:09
DX: R56.9 Unspecified convulsions (principal); R41.0 Disorientation, unspecified; I95.9 Hypotension, unspecified; E87.6 Hypokalemia; F17.200 Nicotine dependence, unspecified, uncomplicated
CPT/HCPCS: 36415; 80048; 80307; 82040; 85025; 96374; 96375; 99285; J1953; J2060

== ENCOUNTER 2020-04-08 23:35 | Emergency (ER) | payer MEDICAID ==
[~2020-04-08] VITALS: Ht 165.1 cm; Wt 50.0 kg
[2020-04-09 00:14] LABS: ANION GAP 3 mmol/L (5-15); CALCIUM 8.9 mg/dL (8.5-10.1); CHLORIDE 108 mmol/L (98-107)
[2020-04-09 00:41] LABS: BASOPHILS % (AUTO) 1 % (0-1); EOSINOPHILS % (AUTO) 1 % (1-7); LYMPHOCYTES % (AUTO) 23 % (22-44); MEAN CORPUSCULAR HEMOGLOBIN 31.5 pg (27.0-34.8); MEAN CORPUSCULAR HGB CONC 34.7 g/dL (32.4-35.8); MEAN PLATELET VOLUME 8.7 fL (7.4-10.4); MONOCYTES % (AUTO) 7 % (2-9); NEUTROPHILS % (AUTO) 69 % (42-75); PLATELET COUNT 283 x10^3/uL (130-400); RED BLOOD COUNT 4.78 x10^6/uL (3.82-5.3); RED CELL DISTRIBUTION WIDTH 13.9 % (9.6-15.2)
[2020-04-09 00:43] LABS: MD NO
[2020-04-09 00:52] LABS: AMPHETAMINE SCREEN, URINE Negative (Negative); BARBITURATE SCREEN, URINE Negative (Negative); BENZODIAZEPINE SCREEN, URINE Negative (Negative); CANNABINOID SCREEN, URINE Positive (Negative); COCAINE SCREEN, URINE Negative (Negative); METHADONE SCREEN, URINE Negative (Negative); OPIATE SCREEN, URINE Negative (Negative)
[2020-04-09 01:33] VITALS: BP 96/54
== END 2020-04-09 01:35 | disposition home or self-care (01) ==
LOC: ED 04-09 00:27
DX: S00.81XA Abrasion of other part of head, initial encounter (principal); G40.309 Generalized idiopathic epilepsy and epileptic syndromes, not intractable, without status epilepticus; F17.210 Nicotine dependence, cigarettes, uncomplicated; G30.9 Alzheimer's disease, unspecified; X58.XXXA Exposure to other specified factors, initial encounter; Y93.89 Activity, other specified; Y92.89 Other specified places as the place of occurrence of the external cause; Y99.8 Other external cause status
CPT/HCPCS: 36415; 70450; 80048; 80307; 80320; 85025; 93005; 99285; 99406; G0480